=== PATIENT | male | born 1945 | race Caucasian/White ===

== ENCOUNTER → 2019-04-10 14:08 | Outpatient (BNVA) | payer OTHER, SELFPAY | PROVIDERS: Family Provider Internal Medicine; PCP Internal Medicine; Visit Provider Anesthesiology | DX: G89.29 Other chronic pain (principal); M54.5 Low back pain; M79.651 Pain in right thigh; M79.652 Pain in left thigh; M25.511 Pain in right shoulder; Z79.891 Long term (current) use of opiate analgesic | CPT/HCPCS: 99214 ==

== ENCOUNTER 2019-04-26 05:19 | Observation (INO) | payer OTHER, SELFPAY ==
[2019-04-26] VITALS (23 sets, daily range): BP systolic 102–156; BP diastolic 67–103; PULSE 76–126; RESP 12–20; TEMP 36.8–37.8; O2SAT 92–100; BMI 30.4
--- NOTE | 2019-04-26 | CTR_ITS ---
[facility] Final Radiology Report with Addendum Call: [phone] Name: JOSE MCDERMOTT Age: 73Years M Date: 04/26/2019 SSN: -- : [id number] Study: CT ABDOMEN/PELVIS W Requesting Physician: Jose Vann DO Images: [id number] Provided Clinical History: Procedure Accession CTDI Vol (mGy) DLP (mGy-cm) CT ABDOMEN/PELVIS W [id number] 1438.28 Addendum created by Abhay Bentley MD on 04/26/2019 7:30 AM Central Time ([place] & [place]) Findings were discussed over the telephone with Dr. Jose Vann, on 04/26/2019 7:29 AM [employer]ER[employer] ADVISER. Initial Report created on 04/26/2019 7:25 AM Central Time ([place] & [place]) PROCEDURE INFORMATION: Exam: CT Abdomen And Pelvis With Contrast Exam date and time: 04/26/2019 7:02 AM Age: 73 years old Clinical indication: Abdominal pain; Patient HX: Generalized abdominal pain with nausea/vomiting TECHNIQUE: Imaging protocol: Computed tomography of the abdomen and pelvis with intravenous contrast. Total DLP: 1438.28 mGy-cm Radiation optimization: All CT scans at this facility use at least one of these dose optimization techniques: automated exposure control; mA and/or kV adjustment per patient size (includes targeted exams where dose is matched to clinical indication); or iterative reconstruction. Contrast material: Omnipaque 300; Contrast volume: 95 ml; Contrast route: IV; COMPARISON: No relevant prior studies available. FINDINGS: Mediastinum: A large hiatal hernia is present above the level of the diaphragm. Distal thoracic esophageal wall thickening. Fluid distension of the distal thoracic esophagus suggesting gastroesophageal reflux. Liver: Mild intrahepatic biliary ductal dilatation. Gallbladder and bile ducts: Gallbladder luminal distention is present measuring 6.3 cm. No intraluminal calculus identified. Pancreas: Severe pancreatic atrophy. Spleen: Normal. No splenomegaly. Adrenals: Normal. No mass. Kidneys and ureters: Bilateral renal cysts, largest on the left measuring 3.3 cm, largest on the right measuring 2.3 cm. Stomach and bowel: Unremarkable. No obstruction. No mucosal thickening. Appendix: No evidence of appendicitis. Intraperitoneal space: Unremarkable. No free air. No significant fluid collection. Vasculature: Moderate abdominal aortic atherosclerotic calcification without aneurysm. The iliac arteries show mild bilateral atherosclerotic calcifications. Distal right common iliac artery fusiform ectasia measuring 17 mm. Lymph nodes: No enlarged lymph nodes. Bladder: The urinary bladder is partially decompressed and somewhat difficult to assess. Reproductive: The prostate gland is enlarged measuring 5.1 cm transverse dimension. Median lobe hypertrophy protrudes into the urinary bladder lumen. Bones/joints: L5-S1 degenerative disc disease. Bilateral lower lumbar facet primary osteoarthritis. Diffuse osteopenia. Lumbar spine vertebral body marginal osteophytes are noted at multiple levels. Slight L5-S1 anterolisthesis. Partial lumbarization of the sacral S1 segment, normal variant. Mild L1- L2 and L2-L3 retrolisthesis. Soft tissues: Nonspecific soft tissue gas in the proximal left thigh musculature and adjacent fascial planes (series 2, images 88-97). Lateral proximal left thigh and lower gluteal region soft tissue edema. IMPRESSION: 1. Nonspecific soft tissue gas in the proximal left thigh musculature and adjacent fascial planes. Emphysematous cellulitis not excluded, if no recent procedure. Clinical correlation is recommended. 2. Distended gallbladder. Gallbladder sonography may be helpful if clinically indicated. 3. Mild nonspecific intrahepatic biliary ductal dilatation. MRCP may be helpful if indicated. 4. Bilateral renal cysts. 5. Prostatic hypertrophy. 6. Hiatal hernia. 7. Distal thoracic esophagitis. 8. Fluid distension of the distal thoracic esophagus suggesting gastroesophageal reflux. Thank you for allowing us to participate in the care of your patient. Dictated and Authenticated by: Abhay Bentley MD 04/26/2019 7:25 AM Central Time ([place] & [place]) [facility] HOSPITALFlory
--- NOTE | 2019-04-26 05:38 | XR_ITS ---
WS: [id number] KUB portable, 04/26/2019 Clinical Data: Abd Pain/ Constipation Comparison: None. Findings: No abnormal intraabdominal masses or calcifications are seen. There is no dilatated small bowel or ev idence of obstruction. There is a hiatal hernia behind the heart. There is a moderate amount of fecal material throughout th e colon. XR/XR KUB portable [id number] Impression: 1. Hiatal hernia. 2. Moderate amount of fecal material in the colon.
[2019-04-26 06:05] LABS: Basophils % 0.3 %; Hematocrit 37.5 % (42.0-52.0); Hemoglobin 12.9 g/dL (11.7-16.6); Lymphocytes # 1.3 10^3/uL (0.8-4.8); Lymphocytes % 19.7 %; Mean Corpuscular HGB Conc 34.4 g/dL (30.0-36.0); Mean Corpuscular Hemoglobin 33.1 pg (28.0-34.0); Mean Corpuscular Volume 96.2 fL (80-94); Mean Platelet Volume 9.1 fL (7.4-10.4); Monocytes # 0.4 10^3/uL (0.2-0.9); Monocytes % 5.2 %; Neutrophils % 74.2 %; Nucleated Red Blood Cells % 0 %; Platelet Count 330 10^3/cmm (130-400); White Blood Count 6.7 10^3/uL (4.0-10.0)
--- NOTE | 2019-04-26 06:07 | XR_ITS ---
WS: [id number] Portable AP upright chest, 04/26/2019 Clinical Data: abd pain - recent surgery Comparison: None. Findings: No nodules, masses or effusions are seen. The heart is normal. The pulmonary vascularity is not increased. No pneumonia or pneumothorax is seen. The aortic arch and descending aorta are tortuo us. There is a hiatal hernia behind the heart. There is an increased distance between the left eighth and ninth rib in the posterior aspect of the patient may have had thoracic surgery. XR/XR chest 1V portable [id number] Impression: Atherosclerosis and hiatal hernia.
[2019-04-26 06:30] LABS: Alanine Aminotransferase 10 U/L (0-41); Alkaline Phosphatase 40 IU/L (40-130); Anion Gap 18.9 (5-19); Aspartate Amino Transferase 20 U/L (0-40); Blood Urea Nitrogen 19 mg/dL (8-23); Carbon Dioxide 23 mmol/L (22-29); Chloride 95 mmol/L (98-107); Globulin 2.8 g/dL (1.3-4.6); Glucose 160 mg/dL (74-106); Potassium 3.9 mmol/L (3.5-5.1); Sodium 133 mmol/L (136-145); Total Bilirubin 1.4 mg/dL (0.15-1.2); Total Protein 6.8 g/dL (6.6-8.7)
[2019-04-26] MEDS: morphine 4 mg/mL SDV 1 mL 2 MG IVP (06:30)
[2019-04-26] MEDS: ondansetron 2 mg/ML SDV 2 mL 4 MG IVP (06:31)
[2019-04-26] MEDS: sodium chloride 0.9% 1,000 ML 999 ML IV (06:31)
[2019-04-26 06:46] LABS: Lipase 29 U/L (13-60)
[2019-04-26] MEDS: iohexol 300 mg/mL 100 mL Btl IV (06:50)
--- NOTE | 2019-04-26 06:59 | PC.NURSE ---
took report and assumed care from karlene petit. pt is in CT at this time
--- NOTE | 2019-04-26 07:00 | ED_ITS ---
HPI - Abdominal Pain General: Chief Complaint: Abdominal Pain Stated Complaint: VOMITING/CONSTIPATED Time Seen by Provider: 04/26/19 06:07 Review of Systems General: Reports: 10 or more systems reviewed and unremarkable except in HPI and below PFSH ED PFSH: Statuses (acute, chronic, etc) shown below reflect problem list status as previously entered and may not be historically accurate Medical History Chronic left-sided low back pain (Chronic) Chronic right shoulder pain (Chronic) Encounter for long-term use of opiate analgesic (Chronic) Surgical History History of throat surgery (Acute) S/P left knee surgery (Acute) Family History Other Cancer Diabetes Social History Smoking and tobacco status: never smoked Alcohol intake: never Physical Exam Const: COMMON NORMALS: no apparent distress, average body habitus, oriented x3, no limitations, healthy appearing, alert and well nourished HENMT: COMMON NORMALS: normocephalic, head/scalp atraumatic, hearing grossly normal bilaterally, external ears normal, EAC's normal, TM's normal bilaterally, external nose normal, nasal mucous membranes and turbinates normal, moist oral mucous membranes, oropharynx normal, dentition normal and gingiva normal HEAD & SCALP: normocephalic and atraumatic NOSE: external nose normal and nasal mucous membranes and turbinates normal EXTERNAL EAR: Yes external ears normal EXTERNAL AUDITORY CANAL: EAC's normal TYMPANIC MEMBRANE: TM's normal bilaterally Eye: COMMON NORMALS: PERRL, EOMs intact bilaterally, conjunctivae normal, no scleral icterus, no papilledema, normal visual kang by confrontation and fundi normal bilaterally CONJUNCTIVA: Yes conjunctivae normal PUPIL: Yes PERRL DIRECT OPHTHALMOSCOPY: Yes no papilledema and Yes fundi normal bilaterally Neck/C-Spine: COMMON NORMALS: full ROM, no lymphadenopathy, supple, no meningeal signs, no JVD, thyroid normal and no carotid bruits THYROID: thyroid normal Chest: COMMONS NORMALS: inspection of chest normal and palpation of chest no rmal Resp: COMMON NORMALS: normal respiratory effort, no retractions, no use of accessory muscles, clear to auscultation bilaterally and percussion normal AUSCULTATION: clear to auscultation bilaterally PERCUSSION: percussion normal Cardio: COMMON NORMALS: no JVD, regular rate, regular rhythm, S1 normal heart sound, S2 normal heart sound, no gallops, no clicks, no murmurs, no rub and peripheral pulses 2+ throughout RATE: regular rate RHYTHM: regular rhythm HEART SOUNDS: S1 normal and S2 normal PERIPHERAL PULSES: pulses 2+ th roughout GI: COMMON NORMALS: soft to palpation, no hepatosplenomegaly, no masses and no bruits AUSCULTATION: Yes hypoactive bowel sounds and Yes absent bowel sounds PALPATION: Yes soft and Yes no hepatosplenomegaly : COMMON NORMALS: Yes no CVA tenderness BLADDER/KIDNEY EXAM: Yes no CVA tenderness Back/Pelvis: COMMON NORMALS: no CVA tenderness, thoracic and lumbar spine normal to inspection, no thoracic nor lumbar tenderness, thoraco-lumbar ROM normal and straight leg raise negative bilaterally Extremity: COMMON NORMALS: normal to inspection, full ROM, normal capillary refill, no joint enlargement, no clubbing, cyanosis or edema, no calf tenderness and no pedal edema Neuro: COMMON NORMALS: oriented x3 SENSORIUM/ORIENTATION: Yes alert MENINGEAL SIGNS: Yes no meningeal signs Skin: COMMON NORMALS: no rashes or lesions noted, no wounds, skin turgor normal, no jaundice, no petechiae and no mottling GENERAL SKIN EXAM: no rashes or lesions noted and turgor normal Procedures Intubation Mg Given: 20 Mg Given: 200 Course Vital Signs: Vital signs: Vital Signs Temperature 98.3 F 04/26/19 05:34 Pulse Rate 107 H 04/26/19 07:17 Respiratory Rate 15 04/26/19 07:17 Blood Pressure 144/102 04/26/19 07:17 Pulse Oximetry 95 04/26/19 07:17 MDM - Abdominal Pain Lab Data: Labs: Lab Results 04/26/19 04/26/19 04/26/19 Range/Units 05:50 05:50 05:50 WBC 6.7 (4.0-10.0) 10^3/ uL RBC 3.90 L (4.1-5.3) 10^6/u L Hgb 12.9 (11.7-16.6) g/dL Hct 37.5 L (42.0-52.0) % MCV 96.2 H (80-94) fL MCH 33.1 (28.0-34.0) pg MCHC 34.4 (30.0-36.0) g/dL RDW 13.0 (12.1-15.1) % Plt Count 330 (130-400) 10^3/c mm MPV 9.1 (7.4-10.4) fL Neut % (Auto) 74.2 % Lymph % (Auto) 19.7 % Wise % (Auto) 5.2 % Eos % (Auto) 0.0 % Baso % (Auto) 0.3 % Neut # (Auto) 5.0 (1.8-7.7) 10^3/u L Lymph # (Auto) 1.3 (0.8-4.8) 10^3/u L Wise # (Auto) 0.4 (0.2-0.9) 10^3/u L Eos # (Auto) 0.0 (0.0-0.8) 10^3/u L Baso # (Auto) 0.0 (0.0-0.1) 10^3/u L Nucleated RBC % (a uto) 0 % Nucleated RBCs # 0.0 /100WBC Sodium 133 L (136-145) mmol/L Potassium 3.9 (3.5-5.1) mmol/L Chloride 95 L (98-107) mmol/L Carbon Dioxide 23 (22-29) mmol/L Anion Gap 18.9 (5-19) BUN 19 (8-23) mg/dL Creatinine 0.9 (0.7-1.2) mg/dL Glucose 160 H (74-106) mg/dL Lactate (0.5-2.2) mmol/L Calcium 10.0 (8.5-10.5) mg/dL Total Bilirubin 1.4 H (0.15-1.2) mg/dL AST 20 (0-40) U/L ALT 10 (0-41) U/L Alkaline Phosphata se 40 (40-130) IU/L Total Protein 6.8 (6.6-8.7) g/dL Albumin 4.0 (3.5-5.2) g/dL Globulin 2.8 (1.3-4.6) g/dL Lipase 29 (13-60) U/L Urine Color (Yellow) Urine Appearance (CLEAR) Urine pH (5-7) Ur Specific Gravit y (1.005-1.030) Urine Protein (Negative) Urine Glucose (UA) (Normal) Urine Ketones (Negative) Urine Occult Blood (Negative) Urine Nitrate (Negative) Urine Bilirubin (NEGATIVE) Urine Urobilinogen (Negative) mg/dL Ur Leukocyte Linh ase (Negative) Urine RBC (0-2) /hpf Urine WBC (0-5) /hpf Ur Squamous Epith Cells (0-5) Urine Bacteria (NONE) Hyaline Casts Urine Mucus 04/26/19 04/26/19 Range/Units 05:50 07:16 WBC (4.0-10.0) 10^3/ uL RBC (4.1-5.3) 10^6/u L Hgb (11.7-16.6) g/dL Hct (42.0-52.0) % MCV (80-94) fL MCH (28.0-34.0) pg MCHC (30.0-36.0) g/dL RDW (12.1-15.1) % Plt Count (130-400) 10^3/c mm MPV (7.4-10.4) fL Neut % (Auto) % Lymph % (Auto) % Wise % (Auto) % Eos % (Auto) % Baso % (Auto) % Neut # (Auto) (1.8-7.7) 10^3/u L Lymph # (Auto) (0.8-4.8) 10^3/u L Wise # (Auto) (0.2-0.9) 10^3/u L Eos # (Auto) (0.0-0.8) 10^3/u L Baso # (Auto) (0.0-0.1) 10^3/u L Nucleated RBC % (a uto) % Nucleated RBCs # /100WBC Sodium (136-145) mmol/L Potassium (3.5-5.1) mmol/L Chloride (98-107) mmol/L Carbon Dioxide (22-29) mmol/L Anion Gap (5-19) BUN (8-23) mg/dL Creatinine (0.7-1.2) mg/dL Glucose (74-106) mg/dL Lactate 2.0 (0.5-2.2) mmol/L Calcium (8.5-10.5) mg/dL Total Bilirubin (0.15-1.2) mg/dL AST (0-40) U/L ALT (0-41) U/L Alkaline Phosphata se (40-130) IU/L Total Protein (6.6-8.7) g/dL Albumin (3.5-5.2) g/dL Globulin (1.3-4.6) g/dL Lipase (13-60) U/L Urine Color Yellow (Yellow) Urine Appearance Clear (CLEAR) Urine pH 5.0 (5-7) Ur Specific Gravit y 1.000 L (1.005-1.030) Urine Protein 1+ H (Negative) Urine Glucose (UA) Norm (Normal) Urine Ketones 1+ H (Negative) Urine Occult Blood Neg (Negative) Urine Nitrate Negative (Negative) Urine Bilirubin 1+ H (NEGATIVE) Urine Urobilinogen 1 H (Negative) mg/dL Ur Leukocyte Linh ase Negative (Negative) Urine RBC None (0-2) /hpf Urine WBC None (0-5) /hpf Ur Squamous Epith Cells 0-4 H (0-5) Urine Bacteria Trace (NONE) Hyaline Casts Rare Urine Mucus Trace Discharge Plan Discharge Patient Disposition: Admitted As Inpatient Clinical Impression: Cholelithiasis Qualifiers: Cholelithiasis location: gallbladder Cholecystitis presence: without cholecystitis Biliary obstruction: without biliary obstruction Qualified Code(s): K80.20 - Calculus of gallbladder without cholecystitis without obstruction Abdominal pain Qualifiers: Abdominal location: generalized Qualified Code(s): R10.84 - Generalized abdominal pain Constipation Qualifiers: Constipation type: unspecified constipation type Qualified Code(s): K59.00 - Constipation, unspecified Hematemesis Qualifiers: Nausea presence: with nausea Qualified Code(s): K92.0 - Hematemesis Condition: Fair Referrals: Keith Nichols [Primary Care Provider] - Coding Level of Care Code ED Director Of Public Works for [facility] Fwd Exam Problem Focused
--- NOTE | 2019-04-26 07:40 | US_ITS ---
WS: [id number] Gallbladder ultrasound, 04/26/2019 Clinical Data: distended gallbladder Comparison: None. Findings: The gallbladder shows sludge and stones with dilatation. The wall measures 0.24 cm with no perichole cystic fluid. The common bile duct is 0.63 cm and there are no intrahepatic ductal abnormalities. Liver shows no cysts, masses or dilated intrahepatic ducts. The pancreas is obscured by overlying bowel gas but no cyst, pseudocyst, or evidence of pancreatitis is noted. Right kidney measures 4.71 x 4.95 x 10.13 cm and there is a small cyst measuring 2.03 x 2.23 x 2.46 c m. The aorta and inferior vena cava show no vascular abnormalities. US/US gall bladder [id number] Impression: 1. Numerous gallstones and sludge and dilated gallbladder. 2. Normal gallbladder wall thickness.
[2019-04-26 07:50] LABS: Urine Appearance Clear (CLEAR); Urine Color Yellow (Yellow)
[2019-04-26 07:51] LABS: Add Urine Microscopic? YES; Bilirubin Urine 1+ (NEGATIVE); Blood Urine Neg (Negative); Glucose Urine UA Norm (Normal); Ketones Urine 1+ (Negative); Leukocyte Esterase Urine Negative (Negative); Nitrate Urine Negative (Negative); Protein Urine 1+ (Negative); Urobilinogen Urine 1 mg/dL (Negative)
[2019-04-26 08:00] LABS: Add Urine Culture? No; Bacteria Urine TRACE; Hyaline Casts Urine RARE; Mucus Urine TRACE; Squamous Epithelial Cell Urine 0-4 (0-5)
--- NOTE | 2019-04-26 09:29 | PC.NURSE ---
pt being transferred to surgery here
--- NOTE | 2019-04-26 10:28 | SUR.PREOP ---
PT VOMITTED APPROXIMATELY 120 ML OF BLACK, COFFEE GROUND LOOKING EMISIS. WILL NOTIFY DR. CONWAY OF THIS.
--- NOTE | 2019-04-26 10:38 | P.ANES_ITS ---
Pre-Anesthetic Assessment Pre-Anesthetic Assessment: Height/Weight: Height 1.73 m Weight 90.718 kg Temp Pulse Resp BP Pulse Ox 99.2 F 112 H 18 134/91 95 04/26/19 10:18 04/26/19 10:18 04/26/19 10:18 04/26/19 10:18 04/26/19 10:18 Preop Diagnosis: cholelithiasis Proposed Procedure: Operation Date: 04/26/19 13:10 Proposed Procedures p Laparoscopic Cholecystectomy(Not Applicable) - Jonathan Hughes MD Social: Social History: No alcohol and No tobacco Exam: Pre-Anes Outpt Exam: alert, oriented x 3, clear to auscultation bilaterally and regular rate & rhythm Airway: Submandibular: WNL Cervical ROM: WNL MP: 2 Dentition: Partials (lower) and Full (upper) History/ROS: No significant history except as noted Pulmonary: Pulmonary: None reported CV/HEM: CV/HEM: HTN : : None reported Hepatic: Hepatic: None reported GI: GI: GERD (not controlled) Comments: constipation Metabolic: Metabolic: None reported Musc/skel: Musc/skel: OA/DJD Neuropsych: Neuropsych: None reported Anesthetic Plan: ASA status: III Anesthesia: Anesthesia Evaluation and General Other Pertinent Information: h/o esophageal surg PFSH Anesthesia PFSH: Medical History Abdominal pain (Inactive) Fracture of left ankle (Acute) Surgical History History of throat surgery (Acute) S/P left knee surgery (Acute) Family History Other Cancer Diabetes Social History Smoking and tobacco status: never smoked Alcohol intake: never Data Anesthesia CBC & Chem 7: 04/26/19 05:50 04/26/19 05:50 Other Labs: Laboratory Results - last 48 hr 04/26/19 04/26/19 04/26/19 05:50 05:50 05:50 WBC 6.7 RBC 3.90 L Hgb 12.9 Hct 37.5 L MCV 96.2 H MCH 33.1 MCHC 34.4 RDW 13.0 Plt Count 330 MPV 9.1 Neut % (Auto) 74.2 Lymph % (Auto) 19.7 [place] % (Auto) 5.2 Eos % (Auto) 0.0 Baso % (Auto) 0.3 Neut # (Auto) 5.0 Lymph # (Auto) 1.3 [place] # (Auto) 0.4 Eos # (Auto) 0.0 Baso # (Auto) 0.0 Nucleated RBC % (auto) 0 Nucleated RBCs # 0.0 Sodium 133 L Potassium 3.9 Chloride 95 L Carbon Dioxide 23 Anion Gap 18.9 BUN 19 Creatinine 0.9 Glucose 160 H Lactate Calcium 10.0 Total Bilirubin 1.4 H AST 20 ALT 10 Alkaline Phosphatase 40 Total Protein 6.8 Albumin 4.0 Globulin 2.8 Lipase 29 Urine Color Urine Appearance Urine pH Ur Specific [place] Urine Protein Urine Glucose (UA) Urine Ketones Urine Occult Blood Urine Nitrate Urine Bilirubin Urine Urobilinogen Ur Leukocyte Esterase Urine RBC Urine WBC Ur Squamous Epith Cells Urine Bacteria Hyaline Casts Urine Mucus 04/26/19 04/26/19 05:50 07:16 WBC RBC Hgb Hct MCV MCH MCHC RDW Plt Count MPV Neut % (Auto) Lymph % (Auto) [place] % (Auto) Eos % (Auto) Baso % (Auto) Neut # (Auto) Lymph # (Auto) [place] # (Auto) Eos # (Auto) Baso # (Auto) Nucleated RBC % (auto) Nucleated RBCs # Sodium Potassium Chloride Carbon Dioxide Anion Gap BUN Creatinine Glucose Lactate 2.0 Calcium Total Bilirubin AST ALT Alkaline Phosphatase Total Protein Albumin Globulin Lipase Urine Color Yellow Urine Appearance Clear Urine pH 5.0 Ur Specific [place] 1.000 L Urine Protein 1+ H Urine Glucose (UA) Norm Urine Ketones 1+ H Urine Occult Blood Neg Urine Nitrate Negative Urine Bilirubin 1+ H Urine Urobilinogen 1 H Ur Leukocyte Esterase Negative Urine RBC None Urine WBC None Ur Squamous Epith Cells 0-4 H Urine Bacteria Trace Hyaline Casts Rare Urine Mucus Trace Cardiac Studies: No Data to Display
[2019-04-26] MEDS: sodium chloride 0.9% 1,000 ML 30 ML IV (11:11)
--- NOTE | 2019-04-26 12:21 | P.HP_ITS ---
Providers/Chief Complaint Primary Care Provider: Keith Nichols Chief Complaint: VOMITING/CONSTIPATED History of Present Illness Abhijit Curiel is a 73 year old male who presented to the ER with epigastric and right upper quadrant pain associated nausea and vomiting since yesterday. Patient states that he has been having difficulty with eating for the last 4 months. But overnight he started having severe nausea and vomiting and subs equently has started having coffee-ground emesis. He also had couple of episodes of hematemesis. Denies any hematochezia. Patient states that he had multiple colonoscopies. He has had 2 surgeries for dysphagia which I suspect is for esophageal stricture. Patient has been constipated and has not had a bowel movement in 10 days. He had his knee replaced in [place] couple of weeks ago. Review of Systems Const: Denies: fever, chills, change in weight or fatigue Eyes: Denies: change in vision ENMT: Denies: painful swallowing Card: Denies: chest pain Resp: Denies: shortness of breath : Denies: painful urination Skin/Breast: Denies: rash, nipple discharge or breast mass/lump Neuro: Denies: seizure-like activity [place]ipe/Lymph: Denies: easy bruising Medications/Allergies Home Medications Medication Instructions Recorded Confirmed Last Taken Type acetaminophen [Tylenol Extra 1,000 mg PO QID PRN 04/26/19 04/26/19 Unknown History Strength] docusate sodium [Stool Softener] 100 mg PO DAILY PRN 04/26/19 04/26/19 Unknown History Allergies Allergy/AdvReac Type Severity Reaction Status Date / Time No Known Allergies Allergy Verified 04/26/19 10:17 PFSH Acute PFSH: Statuses (acute, chronic, etc) shown below reflect problem list status as previously entered and may not be historically accurate Medical History Esophageal stricture (Acute) Fracture of left ankle (Acute) GERD (gastroesophageal reflux disease) (Acute) Surgical History H/O esophagogastroduodenoscopy (Acute) S/P laparotomy (Acute) S/P left knee surgery (Acute) S/P thoracotomy (Acute) for ? esophageal stricture Status post colonoscopy (Acute) Status post left knee replacement (Acute) Family History Other Cancer Diabetes Social History Smoking and tobacco status: never smoked Alcohol intake: never Vitals/I&O/Wt Last Vital Signs Temp 99.2 F 04/26/19 10:18 Pulse 112 H 04/26/19 10:18 Resp 18 04/26/19 10:18 BP 134/91 04/26/19 10:18 Pulse Ox 95 04/26/19 10:18 04/25/19 04/26/19 04/26/19 22:59 06:59 14:59 Output Total 120 / 120 Balance -120 / -120 Weight last 48 hrs Weight 200 lb Physical Exam Narrative: EXAM NARRATIVE: HEENT: Normocephalic Eye: Sclera /conjunctiva normal Respiratory and chest: Bilateral clear breath sounds on auscultation Cardiovascular: Normal S1 and S2 heart sounds, left thoracotomy scar Abdomen: Soft to palpation, well-healed midline laparotomy scar, tender in the right upper quadrant, Hanson sign positive Neurological: Oriented to place person and time Skin: Intact, no lesions appreciated on gross exam Data : 04/26/19 05:50 04/26/19 05:50 A&P Assessment and plan (1) Cholelithiasis: Patient has been dealing with right upper quadrant pain for the last 3 to 4 months which is worse after eating. Ultrasound showed gallstones. His LFTs are normal except for slightly elevated bilirubin of 1.4. Plan for laparoscopic possible open cholecystectomy Procedure, risks, benefits and alternatives have been discussed with the patient who wishes to proceed with surgery. Status: Acute Qualifiers: Biliary obstruction: without biliary obstruction Cholecystitis presence: without cholecystitis Cholelithiasis location: gallbladder Qualified Code(s): K80.20 - Calculus of gallbladder without cholecystitis without obstruction Code(s): K80.20 - Calculus of gallbladder without cholecystitis without obstruction (2) Hematemesis: Plan for EGD under MAC prior to cholecystectomy Status: Acute Qualifiers: Nausea presence: with nausea Qualified Code(s): K92.0 - Hematemesis Code(s): K92.0 - Hematemesis Attestations Medical Necessity Statement*: Cholelithiasis with hematemesis Coding Level of Care Code Acute Senior Audit Manager for [facility] Fwd Diagnoses Cholelithiasis K80.20 Biliary obstruction: without biliary obstruction Cholecystitis presence: without cholecystitis Cholelithiasis location: gallbladder Hematemesis K92.0 Nausea presence: with nausea
[2019-04-26] MEDS: piperacillin-tazobactam 3.375 GM in sodium chloride 0.9% (plus) 50 ML IV (12:41)
[2019-04-26] MEDS: dextrose 5%-ns + KCl 20 20 MEQ/1,000 ML BAG 100 MEQ IV (15:51)
[2019-04-26] MEDS: famotidine 20 mg/2 mL INJ IVP (15:52)
[2019-04-26] MEDS: morphine 4 mg/mL SDV 1 mL 3 MG IVP ×2 (15:54→22:00)
[2019-04-26] MEDS: lactulose oral liq 20 gm/30 mL UDC 10 GM PO (15:58)
--- NOTE | 2019-04-26 18:35 | P.OP_ITS ---
Operative Report Date of procedure: April 26, 2019 Pre-op Diagnosis: cholelithiasis, coffee-ground emesis, history of esophageal surgery for str Post-op Diagnosis: Dilated distal esophagus Esophagitis Cholelithiasis Procedure Done: Esophagogastroduodenoscopy without biopsy Laparoscopic cholecystectomy laparoscopic lysis of adhesions for 10 minutes Specimens removed/disposition: Gallbladder Surgeon: Jonathan Hughes Anesthesia: General Estimated blood loss (mL): 20 Condition: stable Disposition: PACU Procedure: The patient was taken to the operating room and was intubated under general anesthesia. A gastroscope was introduced and advanced up to the second portion of the duodenum and slowly withdrawn. There was some coffee-ground fluid noted in the stomach. The first and second portion of the duodenum was normal. The fundus, antrum, pylorus and body of the stomach was normal. There was some edema at the GE junction with esophagitis which is a likely source of the melena. The distal esophagus was dilated. After the antibiotic had been administered, the abdomen was prepped and draped in a sterile manner. Using a #15 blade, a 1 centimeter infraumbilical curvilinear incision was made and using an open Katie technique the peritoneal cavity was entered. A 10 millimeter port was placed and 15 millimeters of pneumoperitoneum was created. A 10 millimeter, 30 degrees scope was then introduced. A 5 mm port was placed to the left of the midline superior to the umbilicus under direct visualization and lysis of adhesions was performed for 10 minutes. Transverse colon and omentum was adherent to the abdominal wall from prior laparotomy. Three 5 millimeter ports were placed in the epigastric, midclavicular and the anterior axillary line two fingerbreadths below the costal margin on the right side under the direct visualization. Ratcheted forceps were introduced into the lateral most port and was used to retract the fundus of the gallbladder cephalad and using forceps the infundibulum of the gallbladder was retracted laterally. Using L- hook cautery the peritoneum overlying the Calot's triangle was opened medially and laterally until the cystic duct and the cystic artery were skeletonized. Dissection was carried along the body of the gallbladder and after ensuring critical view of safety, 4 clips applied on the cystic duct and 3 clips applied on the cystic artery and cut leaving, 3 clips on the remaining portion of the duct and 2 clips on the remaining portion of the artery. The rest of the gallbladder was dissected off the liver using L-hook cautery. There was no bleeding or bile leaking noted from the gallbladder fossa and the clips appeared to be in place. An EndoCatch bag was introduced to remove the gallbladder. All the ports were removed under direct visualization and there was no bleeding noted from the port sites. The fascia of the umbilicus was closed using [id number] 0 Vicryl sutures and the subcutaneous tissue was approximated us ing 3-0 Vicryl sutures. The skin at all four ports were closed using 4-0 Monocryl and Dermabond. A total of 10 millimeters of 0.5% Marcaine was infiltrated around the port sites. The patient was stable throughout the procedure.
[2019-04-26] MEDS: pantoprazole 40 mg SDV IVP (22:00)
[2019-04-27] VITALS (10 sets, daily range): BP systolic 119–188; BP diastolic 78–92; PULSE 81–104; RESP 14–19; TEMP 36.6–37.2; O2SAT 93–99
[2019-04-27] MEDS: dextrose 5%-ns + KCl 20 20 MEQ/1,000 ML BAG 100 MEQ IV ×2 (00:14→14:12)
[2019-04-27] MEDS: lactulose oral liq 20 gm/30 mL UDC 10 GM PO ×2 (04:07→14:17)
[2019-04-27] MEDS: morphine 4 mg/mL SDV 1 mL 3 MG IVP (05:58)
[2019-04-27] MEDS: magnesium citrate Btl 296 mL PO (05:58)
[2019-04-27 06:03] LABS: Basophils % 0.1 %; Hemoglobin 9.9 g/dL (11.7-16.6); Lymphocytes # 1.3 10^3/uL (0.8-4.8); Lymphocytes % 16.3 %; Mean Corpuscular Hemoglobin 33.4 pg (28.0-34.0); Mean Corpuscular Volume 101.4 fL (80-94); Mean Platelet Volume 9.3 fL (7.4-10.4); Monocytes # 0.7 10^3/uL (0.2-0.9); Monocytes % 8.8 %; Neutrophils # 5.8 10^3/uL (1.8-7.7); Neutrophils % 74.3 %; Nucleated Red Blood Cells % 0 %; Platelet Count 241 10^3/cmm (130-400); Red Blood Count 2.96 10^6/uL (4.1-5.3); Red Cell Distribution Width 13.7 % (12.1-15.1); White Blood Count 7.8 10^3/uL (4.0-10.0)
[2019-04-27 06:20] LABS: Blood Urea Nitrogen 25 mg/dL (8-23); Calcium 9.3 mg/dL (8.5-10.5); Carbon Dioxide 23 mmol/L (22-29); Chloride 106 mmol/L (98-107); Creatinine Clr Calc Pharmacy 87.2616; Glucose 157 mg/dL (74-106); Osmolality Calculated 282 mOsm/kg (285-295); Sodium 136 mmol/L (136-145)
[2019-04-27] MEDS: pantoprazole 40 mg SDV IVP ×2 (09:18→19:45)
[2019-04-27] MEDS: morphine ER (12 HR) 15 mg Tablet PO ×2 (09:19→17:38)
[2019-04-27] MEDS: finasteride 5 mg Tablet PO (09:19)
--- NOTE | 2019-04-27 10:38 | PM.PN ---
Subjective Subjective: Interval history: Status post laparoscopic cholecystectomy and EGD. No further episode of hematemesis or melena. Patient feels better, has some postop abdominal pain but no nausea or vomiting. Tolerating clear liquid diet. Medications: Reviewed: Yes Vitals/I&O/Wt Last Vital Signs Temp 98.6 F 04/27/19 08:00 Pulse 104 H 04/27/19 08:00 Resp 18 04/27/19 08:00 BP 133/92 04/27/19 08:00 Pulse Ox 96 04/27/19 08:00 04/26/19 04/27/19 04/27/19 22:59 06:59 14:59 Intake Total 220 / 2608.333 838.333 / 2608.333 Output Total 200 / 540 200 / 540 Balance 2067.333 638.333 / 8.333 Weight last 48 hrs Weight 200 lb Physical Exam Narrative: EXAM NARRATIVE: Abdomen: Soft, tender, incision clean dry and intact Data : 04/27/19 05:35 04/27/19 05:35 A&P Assessment and plan (1) Status post laparoscopic cholecystectomy: Continue clear liquid diet Continue Protonix 40 mg twice daily Status: Acute Code(s): Z90.49 - Acquired absence of other specified parts of digestive tract (2) Constipation: Patient had a large bowel movement, will repeat the enema later today Status: Acute Qualifiers: Constipation type: unspecified constipation type Qualified Code(s): K59.00 - Constipation, unspecified Code(s): K59.00 - Constipation, unspecified (3) Hematemesis: Continue Protonix 40 mg twice daily Check hemoglobin at 3 PM today Status: Acute Qualifiers: Nausea presence: with nausea Qualified Code(s): K92.0 - Hematemesis Code(s): K92.0 - Hematemesis Attestations Medical Necessity Statement*: Hematemesis and constipation status post lap sasha requiring overnight for observation Coding Level of Care Code Acute Supervisor Wool [employer]aring for g Fwd Diagnoses Status post laparoscopic cholecystectomy Z90.49 Constipation K59.00 Constipation type: unspecified constipation type Hematemesis K92.0 Nausea presence: with nausea
--- NOTE | 2019-04-27 13:02 | PC.CHAP ---
Pastoral Care Encounter/Spiritual Assessment Type of Contact [x] Declined signal maintainer visit [] Patient/Family/Request visit [] Outpatient visit [] Follow-up visit [] Physician referral [] Code/Alert [] Routine visit [] Staff referral [] Actively dying [] Patient sleeping [] Family support [] [] Out of room [] Palliative care [] [] Receiving care in room [] Pre-surgical visit [] Trauma [] Long length of stay [] ICU visit [] Other: Relational/Emotional Strength [] Patient feels connected with others/family/visitors/staff [] Distress [] Loneliness/isolation [] Abandonment Spirituality of Patient [] Person of Katelynn [] Attends Mandaeism of their Katelynn [] Believes in Prayer [] Reads Bible or Gnosticism materials [] There are Spiritual issues to be addressed Lead Massage Therapist Interventions [] Prayer [] Active listening [] Non-anxious presence [] Spiritual/emotional support [] Crisis/trauma care [] Spiritual counseling [] Bereavement support [] Provided bereavement packet [] Provided Bible/devotional materials [] Provided toy/stuffed animal, coloring book to patient or family member [] Provided Communion [] Anointing/[place] [] Salvation [] Completed spiritual assessment [] Other: Impact on Illness or Injury [] Angry [] Fearful [] Anxious [] Often cries [] Exhaustion [] Unable to work [] Unable to attend episcopalian [] Unable to walk/stand [] Unable to read [] Unable to drive [] Unable to eat/drink [] Unable to sleep [] Unable to be with family [] Patient intubated [] Other: Summary Time spent with patient
--- NOTE | 2019-04-27 14:52 | ANE.PACU ---
 Inpatient post-anesthesia follow up: Airway intact: Yes Vital signs: Temperature 97.9 F Pulse Rate [Left R adial] 107 Pulse Rate 87 Respiratory Rate 14 Blood Pressure [Le ft Arm] 144/102 Blood Pressure 142/91 Pulse Oximetry 94 Oxygen Delivery Me thod Nasal Cannula Oxygen Flow Rate 2 Fraction of Inspir ed Oxygen Hydration adequate: Yes Nausea and vomiting: Yes Pain level: 1 Mental status: Baseline
[2019-04-28] VITALS (8 sets, daily range): BP systolic 124–180; BP diastolic 74–83; PULSE 65–84; RESP 16–18; TEMP 36–37.2; O2SAT 93–98
--- NOTE | 2019-04-28 01:06 | PC.NURSE ---
Patient's hemoglobin was 9 at this time. Spoke with the charge nurse Toshia HORTA who stated it would be ok to wait until the morning to let DR. Avila know.
[2019-04-28] MEDS: dextrose 5%-ns + KCl 20 20 MEQ/1,000 ML BAG 100 MEQ IV ×3 (01:13→22:40)
[2019-04-28 06:19] LABS: Eosinophils % 0.2 %; Hematocrit 24.6 % (42.0-52.0); Hemoglobin 8.2 g/dL (11.7-16.6); Lymphocytes # 1.4 10^3/uL (0.8-4.8); Lymphocytes % 21.1 %; Mean Corpuscular HGB Conc 33.3 g/dL (30.0-36.0); Mean Corpuscular Hemoglobin 33.7 pg (28.0-34.0); Mean Corpuscular Volume 101.2 fL (80-94); Mean Platelet Volume 9.5 fL (7.4-10.4); Monocytes # 0.7 10^3/uL (0.2-0.9); Monocytes % 10.3 %; Neutrophils # 4.4 10^3/uL (1.8-7.7); Neutrophils % 67.6 %; Nucleated Red Blood Cells % 0 %; Platelet Count 195 10^3/cmm (130-400); Red Blood Count 2.43 10^6/uL (4.1-5.3); Red Cell Distribution Width 13.8 % (12.1-15.1); White Blood Count 6.5 10^3/uL (4.0-10.0)
[2019-04-28 06:55] LABS: Anion Gap 8.9 (5-19); Blood Urea Nitrogen 24 mg/dL (8-23); Calcium 8.7 mg/dL (8.5-10.5); Carbon Dioxide 25 mmol/L (22-29); Chloride 105 mmol/L (98-107); Creatinine Clr Calc Pharmacy 87.2616; Glucose 121 mg/dL (74-106); Osmolality Calculated 278 mOsm/kg (285-295); Potassium 3.9 mmol/L (3.5-5.1); Sodium 135 mmol/L (136-145)
[2019-04-28] MEDS: pantoprazole 40 mg SDV IVP ×2 (08:06→20:53)
[2019-04-28] MEDS: morphine ER (12 HR) 15 mg Tablet PO ×2 (08:56→18:28)
[2019-04-28] MEDS: finasteride 5 mg Tablet PO (08:56)
--- NOTE | 2019-04-28 11:16 | P.PN_ITS ---
Subjective Subjective: Interval history: Patient has minimal abdominal pain, no nausea or vomiting, does not have an appetite there is tolerating a full liquid diet. He had 3 bowel movements yesterday. No further episodes of hematemesis though his hemoglobin has been trending down, is 8.2 today. Medications: Reviewed: Yes Vitals/I&O/Wt Last Vital Signs Temp 97.9 F 04/28/19 07:36 Pulse 66 04/28/19 07:36 Resp 16 04/28/19 07:36 BP 124/74 04/28/19 07:36 Pulse Ox 95 04/28/19 07:36 04/27/19 04/28/19 04/28/19 22:59 06:59 14:59 Intake Total 360 / 2700 1000 / 2700 120 / 120 Output Total 500 / 800 300 / 800 140 / 140 Balance -140 / 1900 700 / 1900 -20 Physical Exam Narrative: EXAM NARRATIVE: Abdomen: Soft, nontender, nondistended incisions healing well Data : 04/28/19 05:36 04/28/19 05:36 A&P Assessment and plan (1) Anemia: Will recheck hemoglobin this evening, if it remains stable hopefully can go home Patient did not receive Lovenox due to his episode of hematemesis and since his hemoglobin has been trending down Status: Acute Code(s): D64.9 - Anemia, unspecified (2) Status post laparoscopic cholecystectomy: Continue full liquid diet since his appetite is not back to normal Ambulate ad brian. SCD for DVT prophylaxis Status: Acute Code(s): Z90.49 - Acquired absence of other specified parts of digestive tract (3) Constipation: Resolved continue lactulose and senna S for aggressive bowel regimen Status: Acute Qualifiers: Constipation type: unspecified constipation type Qualified Code(s): K59.00 - Constipation, unspecified Code(s): K59.00 - Constipation, unspecified Attestations Medical Necessity Statement*: Patient's hemoglobin has been trending down with no evidence of active GI bleed and therefore he needs continued inpatient hospital stay to ensure that his hemoglobin does not drop any further that would require transfusion Coding Level of Care Code Acute Advertising Project Manager for g Fwd Diagnoses Anemia D64.9 Status post laparoscopic cholecystectomy Z90.49 Constipation K59.00 Constipation type: unspecified constipation type
[2019-04-28 18:09] LABS: Hematocrit 26.8 % (42.0-52.0); Hemoglobin 8.9 g/dL (11.7-16.6)
[2019-04-28] MEDS: sennosides-docusate Tablet 1 TAB PO (18:28)
[2019-04-29] VITALS (8 sets, daily range): BP systolic 130–152; BP diastolic 72–92; PULSE 20–71; RESP 16–71; TEMP 36.7–37; O2SAT 95–96
[2019-04-29 05:36] LABS: Basophils % 0.2 %; Eosinophils # 0.2 10^3/uL (0.0-0.8); Eosinophils % 4.3 %; Hematocrit 23.9 % (42.0-52.0); Hemoglobin 7.9 g/dL (11.7-16.6); Lymphocytes # 1.6 10^3/uL (0.8-4.8); Mean Corpuscular HGB Conc 33.1 g/dL (30.0-36.0); Mean Corpuscular Hemoglobin 32.4 pg (28.0-34.0); Mean Platelet Volume 9.1 fL (7.4-10.4); Monocytes # 0.4 10^3/uL (0.2-0.9); Monocytes % 7.3 %; Neutrophils # 2.9 10^3/uL (1.8-7.7); Neutrophils % 56.6 %; Nucleated Red Blood Cells % 0 %; Platelet Count 164 10^3/cmm (130-400); Red Blood Count 2.44 10^6/uL (4.1-5.3); Red Cell Distribution Width 13.2 % (12.1-15.1); White Blood Count 5.1 10^3/uL (4.0-10.0)
[2019-04-29 05:52] LABS: Anion Gap 10.7 (5-19); Blood Urea Nitrogen 11 mg/dL (8-23); Calcium 8.6 mg/dL (8.5-10.5); Carbon Dioxide 24 mmol/L (22-29); Chloride 102 mmol/L (98-107); Creatinine Clr Calc Pharmacy 87.2616; Glucose 115 mg/dL (74-106); Osmolality Calculated 273 mOsm/kg (285-295); Potassium 3.7 mmol/L (3.5-5.1); Sodium 133 mmol/L (136-145)
[2019-04-29] MEDS: morphine ER (12 HR) 15 mg Tablet PO (09:56)
[2019-04-29] MEDS: pantoprazole 40 mg SDV IVP (09:56)
[2019-04-29] MEDS: finasteride 5 mg Tablet PO (09:56)
[2019-04-29] MEDS: sennosides-docusate Tablet 1 TAB PO (09:56)
--- NOTE | 2019-04-29 10:31 | PC.SOCIAL ---
Pg 2 IMM Explained to pt Pg 2 IMM. Pt verbally understands & signed. Provided a copy to pt & left on pt's bedside table. Signed, dated, & timed then placed in chart.
--- NOTE | 2019-04-29 11:24 | P.PN_ITS ---
Subjective Subjective: Interval history: Hemoglobin is remained stable, denies any nausea or vomiting, no further episodes of hematemesis or melena and is tolerating a liquid diet. Denies any significant abdominal pain Medications: Reviewed: Yes Vitals/I&O/Wt Last Vital Signs Temp 98.6 F 04/29/19 07:19 Pulse 55 L 04/29/19 07:19 Resp 18 04/29/19 07:19 BP 133/83 04/29/19 07:19 Pulse Ox 95 04/29/19 07:19 04/28/19 04/29/19 04/29/19 22:59 06:59 14:59 Intake Total 1360.000 / 2720.000 240 / 2720.000 240 / 240 Output Total 900 / 1965 550 / 1965 300 / 300 Balance 460.000 / 755.000 -310 / 755.000 -60 / -60 Physical Exam Narrative: EXAM NARRATIVE: Abdomen: Soft, nondistended, minimally tender, incision clean dry and intact Data : 04/29/19 05:08 04/29/19 05:08 A&P Assessment and plan (1) Status post laparoscopic cholecystectomy: Doing well DC home today Status: Acute Code(s): Z90.49 - Acquired absence of other specified parts of digestive tract (2) Constipation: Appears to have resolved Status: Resolved Qualifiers: Constipation type: unspecified constipation type Qualified Code(s): K59.00 - Constipation, unspecified Code(s): K59.00 - Constipation, unspecified Attestations Medical Necessity Statement*: Discharge home today Coding Level of Care Code Acute Healthcare Corporate Account Director for [facility] Fwd Diagnoses Status post laparoscopic cholecystectomy Z90.49 Constipation K59.00 Constipation type: unspecified constipation type
--- NOTE | 2019-04-29 11:24 | P.DS_ITS ---
Discharge Providers Date of Admission: 04/26/19 14:32 Date of Discharge: Date of Discharge: April 29, 2019 Attending Provider at Admission: Jonathan Hughes MD Attending Provider at Discharge: Jonathan Hughes MD Primary Care Provider: Keith Nichols Diagnoses at Discharge Discharge Diagnosis (1) Status post laparoscopic cholecystectomy: Status: Acute (2) Constipation: Status: Resolved Qualifiers: Constipation type: unspecified constipation type Qualified Code(s): K59.00 - Constipation, unspecified Reason for Visit Reason for Visit: Reason For Visit: VOMITING/CONSTIPATED Hospital Course Hospital Course: The patient underwent a visual esophagitis and laparoscopic cholecystectomy. He underwent an EGD due to hematemesis. His hemoglobin had been trending down over the 2 days after surgery. By postop day 2 his hemoglobin had stabilized. Patient was asymptomatic, hemodynamically stable. At time of discharge he was tolerating liquid diet, ambulating and his incisions are clean dry and intact Physical Exam Narrative: EXAM NARRATIVE: abdomen: Soft, nontender, nondistended incisions healing well Discharge Data Data Completed and Pending: Completed Studies During Hospitalization Category Date Time Status CT abdomen pelvis w con* [id number] Urge nt Cat Scan 04/26/19 06:07 Completed XR KUB portable 7 [id number] Urgent Exams 04/26/19 05:38 Completed XR chest 1V chago ble [id number] Urgent Exams 04/26/19 06:07 Completed US gall bladder 7 6705 Urgent Ultrasound 04/26/19 07:40 Completed Pending at discharge Category Date Time Status ES surgery / GI i mages Routine Exams 04/26/19 12:06 Ordered Pathology: Surgic al [PTH] Routine Pth 04/26/19 14:22 Received Labs from last 24 hours 04/29/19 04/29/19 04/28/19 05:08 05:08 17:57 WBC 5.1 RBC 2.44 L Hgb 7.9 L 8.9 L Hct 23.9 L 26.8 L MCV 98.0 H MCH 32.4 MCHC 33.1 RDW 13.2 Plt Count 164 MPV 9.1 Neut % (Auto) 56.6 Lymph % (Auto) 31.0 [place] % (Auto) 7.3 Eos % (Auto) 4.3 Baso % (Auto) 0.2 Neut # (Auto) 2.9 Lymph # (Auto) 1.6 [place] # (Auto) 0.4 Eos # (Auto) 0.2 Baso # (Auto) 0.0 Nucleated RBC % (a uto) 0 Nucleated RBCs # 0.0 Sodium 133 L Potassium 3.7 Chloride 102 Carbon Dioxide 24 Anion Gap 10.7 BUN 11 Creatinine 0.6 L Glucose 115 H Calculated Osmolal ity 273 L Calcium 8.6 Vitals: Last Vital Signs Temp 98.6 F 04/29/19 07:19 Pulse 55 L 04/29/19 07:19 Resp 18 04/29/19 07:19 BP 133/83 04/29/19 07:19 Pulse Ox 95 04/29/19 07:19 Discharge Plan Discharge Patient Disposition: Home, Self-Care Condition: Fair Prescriptions: New Carafate 1 gram tablet 1 gm PO Q6H 28 Days Qty: 112 RF: 0 Colace 100 mg capsule 100 mg PO BID Qty: 30 RF: 0 lactulose 10 gram/15 mL solution 15 ml PO BID Qty: 237 RF: 2 Continued hydromorphone [Dilaudid] 4 mg tablet 4 mg PO QID PRN (Reason: pain) 30 Days Qty: 120 RF: 0 morphine 15 mg tablet extended release 15 mg PO Q12H PRN (Reason: pain) 30 Days Qty: 60 RF: 0 lansoprazole 15 mg capsule,delayed release(DR/EC) 15 mg PO BID RF: 0 diphenhydramine HCl [Benadryl] 25 mg capsule 25 mg PO TID PRN (Reason: Allergy Symptoms) RF: 0 finasteride 5 mg tablet 5 mg PO ONCE RF: 0 Tylenol Extra Strength 500 mg Tablet 1,000 mg PO QID PRN (Reason: Pain) RF: 0 Discontinued docusate sodium [Stool Softener] 100 mg Capsule 100 mg PO DAILY PRN (Reason: Constipation) RF: 0 Discharge Orders: Discharge Order (Routine); Ordered 04/29/19 Ordered By: Jonathan Hughes Referrals: Keith Nichols [Primary Care Provider] - (Call the clinic on Tuesday and make an appointment to be made the next avaliable date.) Jonathan Hughes MD [Physician] - 2 weeks (Call his office and make an appointment to be seen in 2 weeks.) Patient Instructions: Constipation - Adult, Sucralfate (By mouth), Laxative, Stool Softeners (By mouth), Lactulose (By mouth), Cholelithiasis (DC), Laparoscopic Cholecystectomy (DC) Activity Restrictions/Additional Instructions: 1. Up and walking as tolerated. 2. Ok to shower in 48 hours after surgery. 3. Remove Dermabond dressing in 7-10 days. 4. Do not lift more than 10 pounds. 5. Do not operate heavy machinery or drive while using pain medications. 6. Advised to return to ER or contact my office if there are any signs of infection like, increasing pain, fevers, chills, redness or drainage of pus. Discharge Date/Time: 04/29/19 12:21 Discharge Attestations Time Spent in Discharge Care*: less than 30 min Quality Metrics Clinical Quality Measures During this hospital stay, did patient experience: None Coding Level of Care Code Acute Rn Palliative Care for Chg Fwd Diagnoses Status post laparoscopic cholecystectomy Z90.49 Constipation K59.00 Constipation type: unspecified constipation type
== END 2019-04-29 12:21 | disposition home or self-care (01) ==
LOC: ER 09:02 → OR 09:03 → MEDSURG 14:33
PROVIDERS: Emergency Medicine; Admitting Provider Surgery; Emergency Provider Family Medicine; Family Provider Internal Medicine; PCP Internal Medicine; Visit Provider Surgery
PROC: 0FT44ZZ Resection of Gallbladder, Percutaneous Endoscopic Approach (ICD-10-PCS; CPT 47562; principal; 2019-04-26 13:10)
PROC: 0DJ08ZZ Inspection of Upper Intestinal Tract, Via Natural or Artificial Opening Endoscopic (ICD-10-PCS; CPT 43235; 2019-04-26 13:10)
DX: K80.10 Calculus of gallbladder with chronic cholecystitis without obstruction (principal); K21.9 Gastro-esophageal reflux disease without esophagitis; Z83.3 Family history of diabetes mellitus; K59.00 Constipation, unspecified; K92.0 Hematemesis; D64.9 Anemia, unspecified; K22.8 Other specified diseases of esophagus; I10 Essential (primary) hypertension; M19.90 Unspecified osteoarthritis, unspecified site
CPT/HCPCS: 43235; 47562; 12345; 36415; 45915; 71045; 74018; 74177; 76705; 80048; 80053; 81001; 83605; 83690; 85014; 85018; 85025; 88304; 96360; 96361; 96365; 96374; 96375; 97110; 97161; 97530; 99282; 99285; C9113; G0378; J0330; J2001; J2270; J2370; J2405; J2543; J2704; J2710; J2765; J3010; J3490; J7030; Q9967

== ENCOUNTER 2019-05-03 06:30 | Observation (INO) | payer OTHER, SELFPAY ==
[2019-05-03] VITALS (11 sets, daily range): BP systolic 97–115; BP diastolic 63–79; PULSE 72–106; RESP 14–18; TEMP 36.4–37.1; O2SAT 93–100; BMI 30.4
--- NOTE | 2019-05-03 06:41 | ED_ITS ---
HPI - General Adult General: Chief complaint: GI Bleed Stated complaint: GI BLEED Time Seen by Provider: 05/03/19 06:39 History of Present Illness: HPI narrative: 73-year-old male presents the emergency room with complaints of hematemesis and coffee-ground emesis overnight. He has not had any chest pain or shortness of breath. He recently had a cholecystectomy. Associated symptoms: Reports nausea and vomiting; Deny chest pain, dyspnea, malaise or rash Review of Systems Const: Denies: fever, chills, body aches, change in appetite, fatigue or malaise ENMT: Denies: throat pain, ear pain, nasal discharge or nasal congestion Card: Denies: chest pain, edema, shortness of breath on exertion or shortness of breath when lying down Resp: Denies: shortness of breath, productive cough or non-productive cough GI: Reports: abdominal pain, nausea, vomiting, vomiting blood and coffee grounds in vomit; Denies: diarrhea, constipation, bloating, blood in stool or black tarry stool : Denies: flank pain, painful urination, urinary frequency or urinary urgency Skin/Breast: Denies: rash or itching PFSH ED PFSH: Statuses (acute, chronic, etc) shown below reflect problem list status as previously entered and may not be historically accurate Medical History Esophageal dilatation (Acute) Esophageal stricture (Acute) Fracture of left ankle (Acute) GERD (gastroesophageal reflux disease) (Acute) Surgical History H/O esophagogastroduodenoscopy (Acute) 04/26/2019: Esophagitis S/P laparotomy (Acute) S/P thoracotomy (Acute) for ? esophageal stricture Status post colonoscopy (Acute) Status post laparoscopic cholecystectomy (Acute) Status post left knee replacement (Acute) Family History Father Cancer Unknown origin Mother Cancer Reported renal cancer Other Diabetes Social History Smoking and tobacco status: former smoker Alcohol intake: never Physical Exam Const: COMMON NORMALS: no apparent distress GENERAL APPEARANCE: cooperative and comfortable ORIENTATION/CONSCIOUSNESS: Yes awake, Yes oriented to person, Yes oriented to place and Yes oriented to time HENMT: COMMON NORMALS: normocephalic, head/scalp atraumatic, hearing grossly normal bilaterally, external ears normal, EAC's normal, TM's normal bilaterally, nasal mucous membranes and turbinates normal, moist oral mucous membranes and oropharynx normal HEAD & SCALP: normocephalic and atraumatic NOSE: nasal mucous membranes and turbinates normal EXTERNAL EAR: Yes external ears normal EXTERNAL AUDITORY CANAL: EAC's normal TYMPANIC MEMBRANE: TM's normal bilaterally Eye: COMMON NORMALS: PERRL, EOMs intact bilaterally, conjunctivae normal and no scleral icterus CONJUNCTIVA: Yes conjunctivae normal PUPIL: Yes PERRL Neck/C-Spine: COMMON NORMALS: full ROM, no lymphadenopathy, supple and no JVD Lymph: LYMPHATIC: no lymphadenopathy noted and no lymphedema noted Resp: COMMON NORMALS: normal respiratory effort, no retractions, no use of accessory muscles and clear to auscultation bilaterally AUSCULTATION: clear to auscultation bilaterally Cardio: COMMON NORMALS: no JVD, regular rate, regular rhythm and no murmurs RATE: regular rate RHYTHM: regular rhythm GI: COMMON NORMALS: soft to palpation and no hepatosplenomegaly AUSCULTATION: Yes normoactive bowel sounds PALPATION: Yes soft, No tender, No guarding and Yes no hepatosplenomegaly Extremity: COMMON NORMALS: normal to inspection, normal capillary refill, no clubbing, cyanosis or edema, no calf tenderness and no pedal edema Neuro: SENSORIUM/ORIENTATION: Yes oriented to person, Yes oriented to place and Yes oriented to time Skin: COMMON NORMALS: no rashes or lesions noted GENERAL SKIN EXAM: no rashes or lesions noted Course ED course: He has mild anemia. Organ to go ahead and put him on observation he may need further evaluation including potential endoscopy discussed Dr. Sterling taylor she will see him. Vital Signs: Vital signs: Vital Signs Temperature 98.8 F 05/04/19 11:59 Pulse Rate 78 05/04/19 11:59 Respiratory Rate 18 05/04/19 11:59 Blood Pressure 123/82 05/04/19 11:59 Pulse Oximetry 97 05/04/19 11:59 MDM - General Adult Lab Data: Labs: Lab Results 05/03/19 05/03/19 05/03/19 Range/Units 07:10 07:10 07:10 WBC 5.3 (4.0-10.0) 10^3/ uL RBC 3.47 L (4.1-5.3) 10^6/u L Hgb 11.4 L (11.7-16.6) g/dL Hct 34.1 L (42.0-52.0) % MCV 98.3 H (80-94) fL MCH 32.9 (28.0-34.0) pg MCHC 33.4 (30.0-36.0) g/dL RDW 14.6 (12.1-15.1) % Plt Count 283 (130-400) 10^3/c mm MPV 9.0 (7.4-10.4) fL Neut % (Auto) 62.7 % Lymph % (Auto) 23.2 % [place] % (Auto) 7.7 % Eos % (Auto) 5.8 % Baso % (Auto) 0.4 % Neut # (Auto) 3.3 (1.8-7.7) 10^3/u L Lymph # (Auto) 1.2 (0.8-4.8) 10^3/u L [place] # (Auto) 0.4 (0.2-0.9) 10^3/u L Eos # (Auto) 0.3 (0.0-0.8) 10^3/u L Baso # (Auto) 0.0 (0.0-0.1) 10^3/u L Nucleated RBC % (a uto) 0 % Nucleated RBCs # 0.0 /100WBC PT 14.60 H (10.5-13.3) SECO NDS INR 1.10 (0.8-1.2) APTT 28.7 (23.9-36.7) SECO NDS Sodium 134 L (136-145) mmol/L Potassium 4.0 (3.5-5.1) mmol/L Chloride 98 (98-107) mmol/L Carbon Dioxide 29 (22-29) mmol/L Anion Gap 11.0 (5-19) BUN 9 (8-23) mg/dL Creatinine 0.7 (0.7-1.2) mg/dL Glucose 121 H (65-115) mg/dL Estimat Average Gl ucose Hemoglobin A1c (4.0-6.0) % Calcium 9.5 (8.5-10.5) mg/dL Total Bilirubin 1.0 (0.15-1.2) mg/dL AST 23 (0-40) U/L ALT 45 H (0-41) U/L Alkaline Phosphata se 43 (40-130) IU/L Total Protein 5.9 L (6.6-8.7) g/dL Albumin 3.8 (3.5-5.2) g/dL Globulin 2.1 (1.3-4.6) g/dL 05/03/19 05/03/19 Range/Units 08:38 08:38 WBC (4.0-10.0) 10^3/ uL RBC (4.1-5.3) 10^6/u L Hgb 11.1 L (11.7-16.6) g/dL Hct (42.0-52.0) % MCV (80-94) fL MCH (28.0-34.0) pg MCHC (30.0-36.0) g/dL RDW (12.1-15.1) % Plt Count (130-400) 10^3/c mm MPV (7.4-10.4) fL Neut % (Auto) % Lymph % (Auto) % [place] % (Auto) % Eos % (Auto) % Baso % (Auto) % Neut # (Auto) (1.8-7.7) 10^3/u L Lymph # (Auto) (0.8-4.8) 10^3/u L [place] # (Auto) (0.2-0.9) 10^3/u L Eos # (Auto) (0.0-0.8) 10^3/u L Baso # (Auto) (0.0-0.1) 10^3/u L Nucleated RBC % (a uto) % Nucleated RBCs # /100WBC PT (10.5-13.3) SECO NDS INR (0.8-1.2) APTT (23.9-36.7) SECO NDS Sodium (136-145) mmol/L Potassium (3.5-5.1) mmol/L Chloride (98-107) mmol/L Carbon Dioxide (22-29) mmol/L Anion Gap (5-19) BUN (8-23) mg/dL Creatinine (0.7-1.2) mg/dL Glucose (65-115) mg/dL Estimat Average Gl ucose 94 Hemoglobin A1c 4.9 (4.0-6.0) % Calcium (8.5-10.5) mg/dL Total Bilirubin (0.15-1.2) mg/dL AST (0-40) U/L ALT (0-41) U/L Alkaline Phosphata se (40-130) IU/L Total Protein (6.6-8.7) g/dL Albumin (3.5-5.2) g/dL Globulin (1.3-4.6) g/dL Discharge Plan Discharge Patient Disposition: Admitted As Inpatient Admit Provider: Susanne Francis Clinical Impression: Intractable nausea and vomiting, Status post laparoscopic cholecystectomy Condition: Stable Interventions: ED Discharge Assessment Last Done: 05/03/19 10:02 Discharge Date/Time: 05/03/19 10:06 Coding Level of Care Code ED Lead Janitor for Chg Fwd Exam Problem Focused
--- NOTE | 2019-05-03 06:53 | XR_ITS ---
WS: [id number] Abdomen series: PA CHEST AND 2 VIEWS OF THE ABDOMEN HISTORY: Nausea and vomiting. COMPARISON: 04/26/2019 Hyperinflated lungs with changes of emphysema. Mild blunting of the RIGHT costophrenic angle. No pneu monia. Heart size is normal. Mild ectasia and atherosclerosis aorta. No free air. There is moderate fluid and air distention of the GI track with no obstructive pattern. Prior cholecystectomy. Osteopenia with degenerative changes in the spine. XR/XR acute abdomen series [id number] IMPRESSION: 1. Distended colon with air and fecal material. Mild ileus or gastroenteritis. No obstruction at this time. 2. Prior cholecystectomy. 3. No pneumonia.
[2019-05-03 07:19] LABS: Basophils % 0.4 %; Eosinophils # 0.3 10^3/uL (0.0-0.8); Eosinophils % 5.8 %; Hematocrit 34.1 % (42.0-52.0); Hemoglobin 11.4 g/dL (11.7-16.6); Lymphocytes # 1.2 10^3/uL (0.8-4.8); Lymphocytes % 23.2 %; Mean Corpuscular HGB Conc 33.4 g/dL (30.0-36.0); Mean Corpuscular Hemoglobin 32.9 pg (28.0-34.0); Mean Corpuscular Volume 98.3 fL (80-94); Monocytes # 0.4 10^3/uL (0.2-0.9); Monocytes % 7.7 %; Neutrophils # 3.3 10^3/uL (1.8-7.7); Neutrophils % 62.7 %; Nucleated Red Blood Cells % 0 %; Platelet Count 283 10^3/cmm (130-400); Red Blood Count 3.47 10^6/uL (4.1-5.3); Red Cell Distribution Width 14.6 % (12.1-15.1); White Blood Count 5.3 10^3/uL (4.0-10.0)
[2019-05-03 07:29] LABS: Partial Thromboplastin Time 28.7 SECONDS (23.9-36.7)
--- NOTE | 2019-05-03 07:32 | CT_ITS ---
WS: [id number] CT ABDOMEN AND PELVIS WITH CONTRAST HISTORY: Generalized abdominal pain with nausea. TECHNIQUE: Imaging performed of the abdomen and pelvis with IV contrast. Single phase imaging of the abdomen. Coronal and sagittal reformats are submitted. All CT scans at [facility] use at least one of these dose optimization techniques: automated exposure control; mA and/or kV adjustment per patient size (includes targeted exams where dose is matched to clinical indication); or iterativ e reconstruction. IV CONTRAST: Omnipaque 300; 95 mL IV. Oral contrast: No DLP: 1388.73 mGy.cm COMPARISON: 04/26/2019 Lower thorax: Mild interstitial thickening at the lung bases with very tiny RIGHT pleural effusion no w present. Heart is moderately enlarged. There is marked distention of the distal esophagus. Esophagu s is distended with fluid with diffuse wall thickening. There is also an adjacent large hiatal hernia . Liver/biliary system: Normal size liver with mild intrahepatic duct dilatation. Duct dilatation is si milar to the prior study. Common bile duct at the pancreatic head is 9.4 mm. Gallbladder: Gallbladder has been surgically removed since the prior examination. No fluid collection s in the gallbladder fossa. Pancreas: Normal. Spleen: Normal. Adrenal glands: Normal. Right kidney: Stable cortical hypodensities. The largest in the upper pole measures 2.2 cm. No obstru ction or solid mass. Left kidney: Cortical cyst measures 3.1 cm in the lower pole. No obstruction or mass. Aorta: Atherosclerosis aorta. No aneurysm. Lymphadenopathy: None. Free fluid: None. GI tract: The appendix is not definitely identified but there is no evidence for appendicitis. Mild d iffuse constipation with no obstructive process. Abdominal wall: Supraumbilical fat-containing hernia with a diameter of 3.7 cm. There is omental fat herniating through the defect. Soft tissue thickening near the umbilicus is new and probably related to the recent cholecystectomy and trocar placement. No abscess. Pelvis: Moderately enlarged prostate gland indents the posterior urinary bladder. Urinary bladder is partially distended. No adenopathy or fluid in the pelvis. Bones: Marked degenerative scoliosis and spondylitic changes in the lower thoracic and entire lumbar spines. CT/CT abdomen pelvis w con* [id number] IMPRESSION: 1. Status post recent cholecystectomy. No complications are evident at the gal lbladder fossa. 2. Large hiatal hernia. 3. Dilated, fluid distended distal esophagus with diffuse wall thickening. May be on the basis of chronic reflux. 4. Fat-containing supraumbilical hernia. 5. Mild intrahepatic bile duct dilatation may be on the basis of the cholecyst ectomy. No obstructing process of the common bile duct. 6. Moderate constipation.
[2019-05-03] MEDS: sodium chloride 0.9% 500 ML IV (07:33)
[2019-05-03 07:37] LABS: Alanine Aminotransferase 45 U/L (0-41); Albumin Level 3.8 g/dL (3.5-5.2); Alkaline Phosphatase 43 IU/L (40-130); Aspartate Amino Transferase 23 U/L (0-40); Blood Urea Nitrogen 9 mg/dL (8-23); Calcium 9.5 mg/dL (8.5-10.5); Carbon Dioxide 29 mmol/L (22-29); Chloride 98 mmol/L (98-107); Creatinine Clr Calc Pharmacy 87.2616; Globulin 2.1 g/dL (1.3-4.6); Glucose 121 mg/dL (65-115); Sodium 134 mmol/L (136-145); Total Protein 5.9 g/dL (6.6-8.7)
[2019-05-03] MEDS: iohexol 300 mg/mL 100 mL Btl IV (08:07)
[2019-05-03] MEDS: pantoprazole 40 mg SDV IVP (08:10)
[2019-05-03 08:43] LABS: Hemoglobin 11.1 g/dL (11.7-16.6)
[2019-05-03] MEDS: D5-NS 0.45% + KCL 20 mEq 20 MEQ/1,000 ML BAG 125 MEQ IV (10:31)
--- NOTE | 2019-05-03 10:45 | P.HP_ITS ---
Providers/Chief Complaint Admitting Physician: Susanne Francis DO Primary Care Provider: Keith Nichols Chief Complaint: GI BLEED History of Present Illness Abhijit Curiel is a 73 year old male that presented to the emergency department today for nausea and vomiting. He stated that starting at 4:00 in the afternoon yesterday he has had several episodes of vomiting. He stated that it continued to therefore he came into the ER for further evaluation and treatment. He stated that his emesis appears to be dark in color and he reports some darker colored bowel movements. He denies any fevers or chills, no sick contacts, denies any abdominal pain. Patient did recently have cholecystectomy and denies any changes to incisions, no drainage or surrounding redness. Patient was recently admitted and discharged on 04/29/2019 he underwent laparoscopic cholecystectomy and EGD due to concern for hematemesis. His hemoglobin had stabilized at that time and he was discharged to home with home health. At time of discharge he was tolerating a clear liquid diet and ambulating without any concerns. Patient was seen and evaluated in the emergency department and due to his intractable nausea and vomiting he was admitted for further evaluation and treatment. His hemoglobin had actually improved since his previous admission and discharge. Review of Systems Const: Denies: fever or chills Eyes: Denies: change in vision ENMT: Denies: nasal congestion Card: Denies: chest pain, palpitations or edema Resp: Denies: shortness of breath, productive cough or coughing up blood GI: Reports: nausea, vomiting and black tarry stool; Denies: abdominal pain, diarrhea, constipation or blood in stool : Denies: painful urination or blood in urine Musc: Denies: extremity pain or muscle cramps Skin/Breast: Denies: rash or new lesion Neuro: Denies: headache or dizziness Psych: Denies: anxiety or depression Endo: Denies: excessive urination or hot flashes [place]/Lymph: Denies: easy bruising or easy bleeding Medications/Allergies Home Medications Medication Instructions Recorded Confirmed Last Taken Type celecoxib [Celebrex] 200 mg PO DAILY 05/03/19 05/03/19 Unknown History losartan 12.5 mg PO Q12H 05/03/19 05/03/19 Unknown History Allergies Allergy/AdvReac Type Severity Reaction Status Date / Time No Known Allergies Allergy Verified 04/26/19 10:17 PFSH Acute PFSH: Statuses (acute, chronic, etc) shown below reflect problem list status as previously entered and may not be historically accurate Medical History (Updated 05/03/19 @ 11:07 by Susanne Francis DO) Esophageal dilatation (Acute) Esophageal stricture (Acute) Fracture of left ankle (Acute) GERD (gastroesophageal reflux disease) (Acute) Surgical History H/O esophagogastroduodenoscopy (Acute) 04/26/2019: Esophagitis S/P laparotomy (Acute) S/P thoracotomy (Acute) for ? esophageal stricture Status post colonoscopy (Acute) Status post laparoscopic cholecystectomy (Acute) Status post left knee replacement (Acute) Family History (Updated 05/03/19 @ 10:59 by Susanne Francis DO) Father Cancer Unknown origin Mother Cancer Reported renal cancer Other Diabetes Social History Smoking and tobacco status: former smoker Alcohol intake: never Vitals/I&O/Wt Last Vital Signs Temp 98.3 F 05/03/19 10:30 Pulse 92 05/03/19 10:30 Resp 16 05/03/19 10:30 BP 104/72 05/03/19 10:30 Pulse Ox 100 05/03/19 10:30 Weight last 48 hrs Weight 90.718 kg Physical Exam Const: COMMON NORMALS: oriented x3 and alert GENERAL APPEARANCE: cooperative ORIENTATION/CONSCIOUSNESS: Yes awake, Yes oriented to person, Yes oriented to place and Yes oriented to time HENMT: COMMON NORMALS: normocephalic and head/scalp atraumatic HEAD & SCALP: normocephalic and atraumatic Eye: COMMON NORMALS: PERRL PUPIL: Yes PERRL Neck/C-Spine: COMMON NORMALS: supple GENERAL: Yes normal visual inspection Resp: COMMON NORMALS: normal respiratory effort and clear to auscultation bilaterally EFFORT & INSPECTION: Yes able to speak in complete sentences AUSCULTATION: clear to auscultation bilaterally, no rhonchi and no wheezes Cardio: COMMON NORMALS: regular rate, regular rhythm and no murmurs RATE: regular rate RHYTHM: regular rhythm GI: COMMON NORMALS: soft to palpation and non-tender INSPECTION: No abdominal distension AUSCULTATION: Yes normoactive bowel sounds PALPATION: Yes soft Extremity: COMMON NORMALS: no clubbing, cyanosis or edema and no calf tenderness Neuro: COMMON NORMALS: oriented x3, CN's II-XII intact bilaterally, moves all extremities and no focal motor deficits SENSORIUM/ORIENTATION: Yes alert, Yes oriented to person, Yes oriented to place and Yes oriented to time SPEECH: speech normal Psych: COMMON NORMALS: mental status grossly normal and cooperative Skin: COMMON NORMALS: no rashes or lesions noted GENERAL SKIN EXAM: no rashes or lesions noted Data : 05/03/19 08:38 05/03/19 07:10 CT Abd/Pel: I personally reviewed and interpreted this imaging study as follows: Radiologist's impression: IMPRESSION: 1. Status post recent cholecystectomy. No complications are evident at the gallbladder fossa. 2. Large hiatal hernia. 3. Dilated, fluid distended distal esophagus with diffuse wall thickening. May be on the basis of chronic reflux. 4. Fat-containing supraumbilical hernia. 5. Mild intrahepatic bile duct dilatation may be on the basis of the cholecystectomy. No obstructing process of the common bile duct. 6. Moderate constipation. Other Xray: I personally reviewed and interpreted this imaging study as follows: Radiologist's impression: IMPRESSION: 1. Distended colon with air and fecal material. Mild ileus or gastroenteritis. No obstruction at this time. 2. Prior cholecystectomy. 3. No pneumonia. A&P Assessment and plan (1) Intractable nausea and vomiting: Believed to be multifactorial, patient does have esophageal GL dilation a nd dysmotility that requires outpatient GI management We will placed on observation with gentle IV fluids and IV antiemetics Patient has no abdominal discomfort and CT scan as noted above show some mo derate constipation, will continue with medical management. Patient also has question of mild ileus, will keep n.p.o. until symptoms improve and then gradually increase diet as tolerated. Discussed with general surgeon, Dr. Hughes. No postoperative concerns at this time, incision appears to be clean and dry with no surrounding erythema and patient denies any abdominal pain. Status: Acute Code(s): R11.2 - Nausea with vomiting, unspecified Additional A&P Information Question of hematemesis: Patient reports what looks like coffee-ground emesis, hemoglobin has significantly improved from just a couple of days ago. We will continue to monitor closely and continue on Carafate and Protonix. Patient had a recent EGD which showed some esophagitis, no active bleeding at that time. Due to significant improvement in hemoglobin we will continue to trend serially but will hold off on further diagnostic studies at this time, however will consider if hemoglobin drops or patient has continued symptoms. Esophageal dilation with esophageal dysmotility: Recommend outpatient gastroenterology follow-up Patient reports being told he had hypertension in the past, however he declines this diagnosis and reports not taking any medications at home Recent laparoscopic cholecystectomy Anemia: Hemoglobin significantly improved from prior admission, will continue to trend serially Hyperglycemia without prior diagnosis of diabetes, will check hemoglobin A1c DVT prophylaxis: SCDs, no pharmacologic prophylaxis due to concern as above Diet: N.p.o., gradually increase as tolerated CODE STATUS: Allow natural , discussed with patient in the ED Attestations Medical Necessity Statement*: Observation due to intractable nausea vomiting with recent cholecystectomy and question of mild ileus, expected stay less than 2 midnights Coding Level of Care Code Acute Die Drawing Checker for Betty Fwd Diagnoses Intractable nausea and vomiting R11.2
[2019-05-03] MEDS: lactated ringers 1,000 ML 75 ML IV ×2 (10:51→22:57)
[2019-05-03] MEDS: sucralfate 1 gm Tablet PO ×2 (11:44→16:58)
[2019-05-03] MEDS: finasteride 5 mg Tablet PO (11:44)
[2019-05-03] MEDS: lactulose oral liq 20 gm/30 mL UDC 15 GM PO ×2 (11:53→16:58)
[2019-05-03 12:23] LABS: Hematocrit 32.1 % (42.0-52.0); Hemoglobin 10.7 g/dL (11.7-16.6)
[2019-05-03 13:02] LABS: Estmated Average Glucose 94; Hemoglobin A1C 4.9 % (4.0-6.0)
[2019-05-03] MEDS: HYDROcodone-acetaminophen 5-325 mg Tablet 1 TAB PO ×2 (13:57→23:01)
[2019-05-03] MEDS: morphine ER (12 HR) 15 mg Tablet PO (16:58)
[2019-05-03] MEDS: docusate sodium 100 mg Capsule PO (16:58)
[2019-05-03] MEDS: pantoprazole DR 40 mg Tablet PO (16:58)
[2019-05-03 18:58] LABS: Hematocrit 30.4 % (42.0-52.0); Hemoglobin 10.3 g/dL (11.7-16.6)
[2019-05-04] VITALS (8 sets, daily range): BP systolic 107–124; BP diastolic 72–83; PULSE 64–84; RESP 18–19; TEMP 36.5–37.1; O2SAT 94–97
[2019-05-04] MEDS: sucralfate 1 gm Tablet PO ×3 (00:43→10:26)
[2019-05-04] MEDS: HYDROcodone-acetaminophen 5-325 mg Tablet 1 TAB PO ×3 (03:04→16:45)
[2019-05-04 04:29] LABS: Basophils % 0.4 %; Eosinophils # 0.5 10^3/uL (0.0-0.8); Eosinophils % 8.6 %; Hematocrit 31.9 % (42.0-52.0); Hemoglobin 10.3 g/dL (11.7-16.6); Lymphocytes # 2.3 10^3/uL (0.8-4.8); Lymphocytes % 43.6 %; Mean Corpuscular HGB Conc 32.3 g/dL (30.0-36.0); Mean Corpuscular Hemoglobin 33.3 pg (28.0-34.0); Mean Corpuscular Volume 103.2 fL (80-94); Mean Platelet Volume 9.2 fL (7.4-10.4); Monocytes # 0.6 10^3/uL (0.2-0.9); Monocytes % 10.9 %; Neutrophils # 1.9 10^3/uL (1.8-7.7); Neutrophils % 36.1 %; Nucleated Red Blood Cells % 0 %; Platelet Count 231 10^3/cmm (130-400); Red Blood Count 3.09 10^6/uL (4.1-5.3); Red Cell Distribution Width 14.4 % (12.1-15.1); White Blood Count 5.2 10^3/uL (4.0-10.0)
[2019-05-04 04:52] LABS: Alanine Aminotransferase 29 U/L (0-41); Albumin Level 2.9 g/dL (3.5-5.2); Alkaline Phosphatase 33 IU/L (40-130); Anion Gap 13.4 (5-19); Aspartate Amino Transferase 18 U/L (0-40); Blood Urea Nitrogen 10 mg/dL (8-23); Calcium 8.9 mg/dL (8.5-10.5); Carbon Dioxide 24 mmol/L (22-29); Chloride 99 mmol/L (98-107); Creatinine Clr Calc Pharmacy 87.2616; Globulin 1.7 g/dL (1.3-4.6); Glucose 90 mg/dL (65-115); Potassium 3.4 mmol/L (3.5-5.1); Sodium 133 mmol/L (136-145); Total Bilirubin 1.2 mg/dL (0.15-1.2); Total Protein 4.6 g/dL (6.6-8.7)
--- NOTE | 2019-05-04 06:00 | XR_ITS ---
WS: [id number] KUB, 05/04/2019 Clinical Data: Intractable nausea and vomiting Comparison: Acute abdomen series, 05/03/2019 Findings: No abnormal intraabdominal masses or calcifications are seen. There is no dilatated small bowel or ev idence of obstruction. There are clips in the right upper quadrant from a cholecystectomy. There is contrast material in the bladder from yesterday's CT scan of the abdomen and pelvis. There is a large amount of fecal materia l throughout the colon. XR/XR KUB portable [id number] Impression: 1. Negative for obstruction. 2. Large amount of fecal material in the colon.
[2019-05-04] MEDS: lactulose oral liq 20 gm/30 mL UDC 15 GM PO (08:32)
[2019-05-04] MEDS: losartan 50 mg Tablet 25 MG PO (08:32)
[2019-05-04] MEDS: pantoprazole DR 40 mg Tablet PO (08:32)
[2019-05-04] MEDS: finasteride 5 mg Tablet PO (08:32)
[2019-05-04] MEDS: docusate sodium 100 mg Capsule PO (08:33)
[2019-05-04] MEDS: morphine ER (12 HR) 15 mg Tablet PO (10:26)
[2019-05-04] MEDS: lactated ringers 1,000 ML 75 ML IV (11:56)
--- NOTE | 2019-05-04 12:41 | PC.CHAP ---
Pastoral Care Encounter/Spiritual Assessment Type of Contact [] Declined billing control clerk visit [] Patient/Family/Request visit [] Outpatient visit [] Follow-up visit [] Physician referral [] Code/Alert [] Routine visit [] Staff referral [] Actively dying [] Patient sleeping [] Family support [] [] Out of room [] Palliative care [] [x] Receiving care in room [] Pre-surgical visit [] Trauma [] Long length of stay [] ICU visit [x] Other: Follow up visit needed as medical staff was busy with patient Relational/Emotional Strength [] Patient feels connected with others/family/visitors/staff [] Distress [] Loneliness/isolation [] Abandonment Spirituality of Patient [] Person of Katelynn [] Attends [employer] of their Katelynn [] Believes in Prayer [] Reads Bible or Alevism materials [] There are Spiritual issues to be addressed Outside Laborer Interventions [] Prayer [] Active listening [] Non-anxious presence [] Spiritual/emotional support [] Crisis/trauma care [] Spiritual counseling [] Bereavement support [] Provided bereavement packet [] Provided Bible/devotional materials [] Provided toy/stuffed animal, coloring book to patient or family member [] Provided Communion [] Anointing/[place] [] Salvation [] Completed spiritual assessment [] Other: Impact on Illness or Injury [] Angry [] Fearful [] Anxious [] Often cries [] Exhaustion [] Unable to work [] Unable to attend holiness [] Unable to walk/stand [] Unable to read [] Unable to drive [] Unable to eat/drink [] Unable to sleep [] Unable to be with family [] Patient intubated [] Other: Summary Follow up needed Medical staff was busy with patient Outside Laborer Cally Downing Time spent with patient 2 minutes
--- NOTE | 2019-05-04 13:44 | PC.NURSE ---
notified dr Covington that pt is wanting to eat and has not had a bm yet since being her. orders to give one time dose of dulcolax [place] in no relief can do enema and to start pt on FL diet.
--- NOTE | 2019-05-04 19:46 | PM.DCS ---
Discharge Providers Date of Admission: 05/03/19 09:25 Date of Discharge: Date of Discharge: May 04, 2019 Attending Provider at Admission: Susanne Francis DO Attending Provider at Discharge: Lebron Covington Primary Care Provider: Keith Nichols Diagnoses at Discharge Discharge Diagnosis (1) Intractable nausea and vomiting: Status: Acute (2) Status post laparoscopic cholecystectomy: Status: Acute (3) Nausea: Status: Acute Reason for Visit Reason for Visit: Reason For Visit: GI BLEED Hospital Course Hospital Course: 73-year-old gentleman with recent admission for cholecystectomy, subsequently with EGD due to concern for hematemesis returned to the hospital due to nausea and vomiting, with concern for possible coffee-ground contents. His symptoms were thought to be multifactorial secondary to esophageal dilation and dysmotility, hiatal hernia, constipation, possibly mild ileus. Due to recent EGD additional invasive evaluation was deferred. His hemoglobin did not show further decline suggestive of bleeding. He was continued on Protonix, Carafate. Repeat KUB showed constipation. He was started on bowel regimen and had a large bowel movement this afternoon. He has tolerated diet, and was discharged home feeling better. He should continue follow-up with surgery as previously as well as regarding large hiatal hernia, as well please facilitate referral to gastroenterology for follow-up on esophageal dilation. He should maintain bowel regimen, avoid constipation contributing to his symptoms. Physical Exam Const: COMMON NORMALS: no apparent distress and oriented x3 OTHER: Sitting up in bed. Comfortable at rest. Family at bedside. HENMT: COMMON NORMALS: oropharynx normal Neck/C-Spine: COMMON NORMALS: no JVD Resp: COMMON NORMALS: normal respiratory effort and clear to auscultation bilaterally AUSCULTATION: clear to auscultation bilaterally Cardio: COMMON NORMALS: no JVD, regular rhythm, S1 normal heart sound, S2 normal heart sound and no murmurs RHYTHM: regular rhythm HEART SOUNDS: S1 normal and S2 normal GI: COMMON NORMALS: normal to inspection, nondistended, normoactive bowel sounds, soft to palpation and non-tender AUSCULTATION: Yes normoactive bowel sounds PALPATION: Yes soft Extremity: COMMON NORMALS: no joint enlargement and no pedal edema Neuro: COMMON NORMALS: oriented x3 and moves all extremities Skin: COMMON NORMALS: no rashes or lesions noted GENERAL SKIN EXAM: no rashes or lesions noted Discharge Data Data Completed and Pending: Completed Studies During Hospitalization Category Date Time Status CT abdomen pelvis w con* [id number] Stat Cat Scan 05/03/19 07:32 Completed XR KUB portable [id number] Routine Exams 05/04/19 06:00 Completed XR acute abdomen series [id number] Stat Exams 05/03/19 06:53 Completed Labs from last 24 hours 05/04/19 05/04/19 03:00 03:00 WBC 5.2 RBC 3.09 L Hgb 10.3 L Hct 31.9 L MCV 103.2 H MCH 33.3 MCHC 32.3 RDW 14.4 Plt Count 231 MPV 9.2 Neut % (Auto) 36.1 Lymph % (Auto) 43.6 [place] % (Auto) 10.9 Eos % (Auto) 8.6 Baso % (Auto) 0.4 Neut # (Auto) 1.9 Lymph # (Auto) 2.3 [place] # (Auto) 0.6 Eos # (Auto) 0.5 Baso # (Auto) 0.0 Nucleated RBC % (a uto) 0 Nucleated RBCs # 0.0 Sodium 133 L Potassium 3.4 L Chloride 99 Carbon Dioxide 24 Anion Gap 13.4 BUN 10 Creatinine 0.7 Glucose 90 Calcium 8.9 Total Bilirubin 1.2 AST 18 ALT 29 Alkaline Phosphata se 33 L Total Protein 4.6 L D Albumin 2.9 L Globulin 1.7 Vitals: Last Vital Signs Temp 98.2 F 05/04/19 16:00 Pulse 80 05/04/19 16:00 Resp 18 05/04/19 16:00 BP 107/73 05/04/19 16:00 Pulse Ox 96 05/04/19 16:00 Discharge Plan Discharge Patient Disposition: Home, Self-Care Condition: Stable Prescriptions: New Miralax 17 gram/dose powder 17 gm PO BID Qty: 238 RF: 0 Continued hydromorphone [Dilaudid] 4 mg tablet 4 mg PO QID PRN (Reason: pain) 30 Days Qty: 120 RF: 0 morphine 15 mg tablet extended release 15 mg PO Q12H PRN (Reason: pain) 30 Days Qty: 60 RF: 0 lansoprazole 15 mg capsule,delayed release(DR/EC) 15 mg PO BID RF: 0 diphenhydramine HCl [Benadryl] 25 mg capsule 25 mg PO TID PRN (Reason: Allergy Symptoms) RF: 0 finasteride 5 mg tablet 5 mg PO DAILY RF: 0 acetaminophen [Tylenol Extra Strength] 500 mg Tablet 1,000 mg PO QID PRN (Reason: Pain) RF: 0 sucralfate [Carafate] 1 gram tablet 1 gm PO Q6H 28 Days Qty: 112 RF: 0 lactulose 10 gram/15 mL solution 15 ml PO BID Qty: 237 RF: 2 losartan 25 mg Tablet 12.5 mg PO Q12H RF: 0 Discontinued docusate sodium [Colace] 100 mg capsule 100 mg PO BID Qty: 30 RF: 0 celecoxib [Celebrex] 200 mg Capsule 200 mg PO DAILY RF: 0 Discharge Orders: Discharge Order (Routine); Ordered 05/04/19 Ordered By: Lebron Covington Referrals: [facility] [Provider Group] - 2 weeks Keith Nichols [Primary Care Provider] - 05/11/19 10:00 am Jonathan Hughes MD [Physician] - 05/15/19 3:30 pm Discharge Diet: Advance as tolerated and GI Soft Discharge Activity: Increase activity as tolerated Patient Instructions: Polyethylene Glycol 3350 (By mouth), Cholelithiasis (DC), Laparoscopic Cholecystectomy (DC), Acute Nausea and Vomiting (DC) Activity Restrictions/Additional Instructions: Discontinue Celebrex or other NSAIDs if possible as they can contribute to stomach inflammation and bleeding from upper GI tract. Please have your primary care provider recheck your hemoglobin level within 1 week. Avoid constipation. Consider adding fiber to your meals on regular basis. Remove Dermabond dressing in 7-10 days. Do not lift more than 10 pounds. Do not operate heavy machinery or drive while using pain medications. Return to ER or contact Dr Hguhes if there are any signs of infection like, increasing pain, fevers, chills, redness or drainage of pus. Discharge Date/Time: 05/04/19 17:34 Discharge Attestations Time Spent in Discharge Care*: greater than 30 min Quality Metrics Clinical Quality Measures During this hospital stay, did patient experience: None Coding Level of Care Code Acute Radio Control Crane Operator for Chg Fwd Exam Problem Focused Diagnoses Intractable nausea and vomiting R11.2 Status post laparoscopic cholecystectomy Z90.49 Nausea R11.0
== END 2019-05-04 17:34 | disposition home or self-care (01) ==
LOC: ER 06:58 → MEDSURG 10:01
PROVIDERS: Admitting Provider Family Medicine; Emergency Provider Family Medicine; Family Provider Internal Medicine; PCP Internal Medicine; Visit Provider Internal Medicine
DX: R11.2 Nausea with vomiting, unspecified (principal); Z90.49 Acquired absence of other specified parts of digestive tract; R11.0 Nausea; K21.9 Gastro-esophageal reflux disease without esophagitis; Z87.891 Personal history of nicotine dependence; Z98.890 Other specified postprocedural states
CPT/HCPCS: 12345; 36415; 74018; 74022; 74177; 80053; 83036; 85014; 85018; 85025; 85610; 85730; 96361; 96365; 96375; 99282; 99285; C9113; G0378; J7040; Q9967

== ENCOUNTER 2019-05-23 08:58 | Outpatient (CLI) | payer OTHER, SELFPAY ==
--- NOTE | 2019-05-23 09:05 | FL_ITS ---
WS: [id number] MODIFIED BARIUM SWALLOW HISTORY: Other dysphagia FLUOROSCOPY TIME: 2.2 minutes. Modified barium swallow was performed by the speech pathologist. Fluoroscopy was provided with the pa tient in a lateral projection. Multiple food consistencies were provided. Patient swallowed all barium mixtures without difficulty. No aspiration or laryngeal penetration was identified. There is significant spillage into the piriform sinuses of the liquid. Patient was also u nable to eat solid foods. Patient is edentulous. Patient swallowed the barium tablet without difficul ty. Large hiatal hernia was noted at the GE junction. This hiatal hernia has been described. FL/FL barium swallow modifd [id number] IMPRESSION: 1. No aspiration or laryngeal penetration. 2. Significant spillage of liquids to the piriform sinuses. 3. Large, known hiatal hernia. Please see speech therapist report also for recommendations.
== END 2019-05-23 08:59 | disposition home or self-care (01) ==
PROVIDERS: Family Provider Internal Medicine; PCP Internal Medicine; Visit Provider Surgery
DX: K44.9 Diaphragmatic hernia without obstruction or gangrene (principal); R13.19 Other dysphagia
CPT/HCPCS: 74230; 92611

== ENCOUNTER → 2019-06-05 13:38 | Outpatient (BNVA) | payer OTHER, SELFPAY | PROVIDERS: Family Provider Internal Medicine; PCP Internal Medicine; Visit Provider Anesthesiology | DX: M54.5 Low back pain (principal) | CPT/HCPCS: 99213 ==

== ENCOUNTER → 2019-11-02 09:27 | Outpatient (BNVA) | payer OTHER, SELFPAY | PROVIDERS: Family Provider Internal Medicine; PCP Family Medicine; Visit Provider Anesthesiology | DX: G89.29 Other chronic pain (principal); M54.42 Lumbago with sciatica, left side; Z79.891 Long term (current) use of opiate analgesic | CPT/HCPCS: 99213; 99214 ==

== ENCOUNTER → 2020-01-01 09:22 | Outpatient (BNVA) | payer OTHER, SELFPAY | PROVIDERS: Family Provider Internal Medicine; PCP Family Medicine; Visit Provider Anesthesiology | DX: G89.29 Other chronic pain (principal); M54.42 Lumbago with sciatica, left side; Z79.891 Long term (current) use of opiate analgesic | CPT/HCPCS: 99213; 99214 ==

== ENCOUNTER → 2020-02-26 09:36 | Outpatient (BNVA) | payer OTHER, SELFPAY | PROVIDERS: Family Provider Internal Medicine; PCP Family Medicine; Visit Provider Anesthesiology | DX: G89.29 Other chronic pain (principal); M54.42 Lumbago with sciatica, left side; Z79.891 Long term (current) use of opiate analgesic | CPT/HCPCS: 99213; 99214 ==

== ENCOUNTER → 2020-04-24 12:49 | Outpatient (BNVA) | payer OTHER, SELFPAY | PROVIDERS: Family Provider Internal Medicine; PCP Family Medicine; Visit Provider Anesthesiology | DX: G89.29 Other chronic pain (principal); M54.42 Lumbago with sciatica, left side; Z79.891 Long term (current) use of opiate analgesic | CPT/HCPCS: 99213 ==

== ENCOUNTER → 2020-07-03 10:41 | Outpatient (BNVA) | payer OTHER, SELFPAY | PROVIDERS: Family Provider Internal Medicine; PCP Family Medicine; Visit Provider Anesthesiology | DX: G89.29 Other chronic pain (principal); M54.42 Lumbago with sciatica, left side; Z79.891 Long term (current) use of opiate analgesic | CPT/HCPCS: 99213 ==

== ENCOUNTER → 2020-08-28 13:08 | Outpatient (BNVA) | payer OTHER, SELFPAY | PROVIDERS: Family Provider Internal Medicine; PCP Family Medicine; Visit Provider Anesthesiology | DX: G89.29 Other chronic pain (principal); M54.42 Lumbago with sciatica, left side; Z79.891 Long term (current) use of opiate analgesic | CPT/HCPCS: 99213 ==

== ENCOUNTER → 2020-10-28 13:36 | Outpatient (BNVA) | payer OTHER, SELFPAY | PROVIDERS: Family Provider Internal Medicine; PCP Family Medicine; Visit Provider Anesthesiology | DX: G89.29 Other chronic pain (principal); M54.42 Lumbago with sciatica, left side; Z87.891 Personal history of nicotine dependence; Z79.891 Long term (current) use of opiate analgesic | CPT/HCPCS: 99213 ==

== ENCOUNTER → 2020-11-21 14:09 | Outpatient (BNVA) | payer OTHER, SELFPAY | PROVIDERS: Family Provider Internal Medicine; PCP Family Medicine; Visit Provider Anesthesiology | DX: G89.29 Other chronic pain (principal); M54.42 Lumbago with sciatica, left side; Z79.891 Long term (current) use of opiate analgesic; Z87.891 Personal history of nicotine dependence | CPT/HCPCS: 99213 ==

== ENCOUNTER → 2021-01-22 13:05 | Outpatient (BNVA) | payer OTHER, SELFPAY | PROVIDERS: Family Provider Internal Medicine; PCP Family Medicine; Visit Provider Anesthesiology | DX: G89.29 Other chronic pain (principal); M54.42 Lumbago with sciatica, left side; Z79.891 Long term (current) use of opiate analgesic; Z77.22 Contact with and (suspected) exposure to environmental tobacco smoke (acute) (chronic); Z87.891 Personal history of nicotine dependence | CPT/HCPCS: 99213 ==

== ENCOUNTER → 2021-03-19 10:49 | Outpatient (BNVA) | payer OTHER, SELFPAY | PROVIDERS: Family Provider Internal Medicine; PCP Family Medicine; Visit Provider Anesthesiology | DX: G89.29 Other chronic pain (principal); M54.42 Lumbago with sciatica, left side; Z79.891 Long term (current) use of opiate analgesic; Z87.891 Personal history of nicotine dependence | CPT/HCPCS: 99213 ==

== ENCOUNTER 2022-12-28 17:08 | Outpatient (CLI) | payer OTHER, SELFPAY ==
[2022-12-28 17:49] LABS: Basophils % 1.3 %; Eosinophils # 0.4 10^3/uL (0.0-0.8); Eosinophils % 11.6 %; Lymphocytes # 1.3 10^3/uL (0.8-4.8); Lymphocytes % 41.9 %; Mean Corpuscular HGB Conc 34.7 g/dL (30-55); Mean Corpuscular Hemoglobin 34.2 pg (27-33); Mean Corpuscular Volume 98.6 fl (82-101); Mean Platelet Volume 10.1 fL (7.4-10.4); Monocytes # 0.2 10^3/uL (0.2-0.9); Neutrophils # 1.12 10^3/uL (1.8-7.7); Neutrophils % 37.2 %; Nucleated Red Blood Cells % 0 %; Platelet Count 132 10^3/cmm (157-399); Red Blood Count 3.45 10^6/uL (3.85-5.65); Red Cell Distribution Width 13.1 % (12.1-15.1); White Blood Count 3.01 10^3/uL (3.29-11.43)
[2022-12-28 17:50] LABS: Erythrocyte Sedimentation Rate < 1 mm/hr (0-10)
[2022-12-28 18:28] LABS: Alanine Aminotransferase 101 U/L (0-41); Albumin Level 3.5 g/dL (3.5-5.2); Alkaline Phosphatase 262 U/L (40-130); Aspartate Amino Transferase 125 U/L (0-40); Blood Urea Nitrogen 10 mg/dL (8-23); Calcium 9.1 mg/dL (8.5-10.5); Carbon Dioxide 29 mmol/L (22-29); Chloride 103 mmol/L (98-107); Globulin 2.3 g/dL (1.3-4.6); Glucose 85 mg/dL (65-115); Osmolality Calculated 284 mOsm/kg (285-295); Sodium 138 mmol/L (136-145); Total Protein 5.8 g/dL (6.6-8.7)
== END 2022-12-28 17:09 | disposition home or self-care (01) ==
LOC: LAB 17:09
PROVIDERS: PCP Family Medicine; Visit Provider Specialist
DX: M00.869 Arthritis due to other bacteria, unspecified knee (principal); B96.89 Other specified bacterial agents as the cause of diseases classified elsewhere
CPT/HCPCS: 80053; 85025; 85651; 86140

== ENCOUNTER 2023-01-03 13:25 | Outpatient (CLI) | payer OTHER, SELFPAY ==
[2023-01-03 14:12] LABS: Alanine Aminotransferase 139 U/L (0-41); Albumin Level 3.2 g/dL (3.5-5.2); Alkaline Phosphatase 328 U/L (40-130); Anion Gap 8.5 (5-19); Aspartate Amino Transferase 187 U/L (0-40); Blood Urea Nitrogen 12 mg/dL (8-23); Calcium 8.8 mg/dL (8.5-10.5); Carbon Dioxide 27 mmol/L (22-29); Chloride 102 mmol/L (98-107); Globulin 2.2 g/dL (1.3-4.6); Glucose 88 mg/dL (65-115); Osmolality Calculated 277 mOsm/kg (285-295); Potassium 3.5 mmol/L (3.5-5.1); Sodium 134 mmol/L (136-145); Total Bilirubin 1.3 mg/dL (0.15-1.2); Total Protein 5.4 g/dL (6.6-8.7)
== END 2023-01-03 13:26 | disposition home or self-care (01) ==
LOC: LAB 13:29
PROVIDERS: PCP Family Medicine; Visit Provider Specialist
DX: T84.54XA Infection and inflammatory reaction due to internal left knee prosthesis, initial encounter (principal); Y79.2 Prosthetic and other implants, materials and accessory orthopedic devices associated with adverse incidents
CPT/HCPCS: 80053; 86140

== ENCOUNTER 2023-01-04 14:15 | Outpatient (CLI) | payer OTHER, SELFPAY ==
[2023-01-04 14:25] LABS: Basophils % 1.1 %; Eosinophils # 0.4 10^3/uL (0.0-0.8); Eosinophils % 14.1 %; Hematocrit 34.3 % (37-53); Lymphocytes # 1.3 10^3/uL (0.8-4.8); Mean Corpuscular HGB Conc 34.1 g/dL (30-55); Mean Corpuscular Hemoglobin 34.5 pg (27-33); Mean Corpuscular Volume 101.2 fl (82-101); Mean Platelet Volume 10.3 fL (7.4-10.4); Monocytes # 0.2 10^3/uL (0.2-0.9); Monocytes % 7.1 %; Neutrophils % 30.7 %; Nucleated Red Blood Cells % 0 %; Platelet Count 94 10^3/cmm (157-399); Red Blood Count 3.39 10^6/uL (3.85-5.65); Red Cell Distribution Width 12.3 % (12.1-15.1); White Blood Count 2.83 10^3/uL (3.29-11.43)
[2023-01-04 14:44] LABS: Erythrocyte Sedimentation Rate < 1 mm/hr (0-10)
[2023-01-04 14:59] LABS: Neutrophils # 0.87 10^3/uL (1.8-7.7)
== END 2023-01-04 14:16 | disposition home or self-care (01) ==
LOC: LAB 14:16
PROVIDERS: PCP Family Medicine; Visit Provider Specialist
DX: T84.54XA Infection and inflammatory reaction due to internal left knee prosthesis, initial encounter (principal); Y79.2 Prosthetic and other implants, materials and accessory orthopedic devices associated with adverse incidents
CPT/HCPCS: 85025; 85651

== ENCOUNTER 2023-01-10 12:59 | Outpatient (CLI) | payer OTHER, SELFPAY ==
[2023-01-10 14:44] LABS: Basophils % 0.7 %; Eosinophils # 0.5 10^3/uL (0.0-0.8); Eosinophils % 11.6 %; Hematocrit 37.4 % (37-53); Lymphocytes # 1.2 10^3/uL (0.8-4.8); Lymphocytes % 27.9 %; Mean Corpuscular Hemoglobin 34.6 pg (27-33); Mean Corpuscular Volume 101.9 fl (82-101); Mean Platelet Volume 10.4 fL (7.4-10.4); Monocytes # 0.3 10^3/uL (0.2-0.9); Monocytes % 6.9 %; Neutrophils # 2.23 10^3/uL (1.8-7.7); Neutrophils % 52.7 %; Nucleated Red Blood Cells % 0 %; Platelet Count 110 10^3/cmm (157-399); Red Blood Count 3.67 10^6/uL (3.85-5.65); Red Cell Distribution Width 11.8 % (12.1-15.1); White Blood Count 4.23 10^3/uL (3.29-11.43)
[2023-01-10 15:14] LABS: Alanine Aminotransferase 78 U/L (0-41); Albumin Level 3.3 g/dL (3.5-5.2); Alkaline Phosphatase 269 U/L (40-130); Aspartate Amino Transferase 79 U/L (0-40); Blood Urea Nitrogen 8 mg/dL (8-23); Calcium 9.2 mg/dL (8.5-10.5); Carbon Dioxide 26 mmol/L (22-29); Chloride 105 mmol/L (98-107); Globulin 2.3 g/dL (1.3-4.6); Glucose 88 mg/dL (65-115); Osmolality Calculated 286 mOsm/kg (285-295); Sodium 139 mmol/L (136-145); Total Bilirubin 1.3 mg/dL (0.15-1.2); Total Protein 5.6 g/dL (6.6-8.7)
== END 2023-01-10 13:00 | disposition home or self-care (01) ==
LOC: LAB 13:01
PROVIDERS: PCP Family Medicine; Visit Provider Specialist
DX: T84.54XA Infection and inflammatory reaction due to internal left knee prosthesis, initial encounter (principal); Y79.2 Prosthetic and other implants, materials and accessory orthopedic devices associated with adverse incidents
CPT/HCPCS: 80053; 85025

== ENCOUNTER 2023-01-14 06:00 | Outpatient (RCR) | payer OTHER, SELFPAY | END 2023-01-25 23:59 | disposition home or self-care (01) | LOC: GPT 06:00 | PROVIDERS: PCP Family Medicine; Visit Provider Student in an Organized Health Care Education/Training Program | DX: M25.362 Other instability, left knee (principal) | CPT/HCPCS: 97110; 97140; 97162 ==

== ENCOUNTER 2023-01-17 14:39 | Outpatient (CLI) | payer OTHER, SELFPAY ==
[2023-01-17 14:52] LABS: Basophils % 0.3 %; Eosinophils # 0.2 10^3/uL (0.0-0.8); Eosinophils % 2.9 %; Hematocrit 37.2 % (37-53); Lymphocytes # 1.8 10^3/uL (0.8-4.8); Lymphocytes % 26.9 %; Mean Corpuscular HGB Conc 34.7 g/dL (30-55); Mean Corpuscular Hemoglobin 33.9 pg (27-33); Mean Corpuscular Volume 97.6 fl (82-101); Monocytes # 0.3 10^3/uL (0.2-0.9); Monocytes % 5.2 %; Neutrophils # 4.25 10^3/uL (1.8-7.7); Neutrophils % 64.4 %; Nucleated Red Blood Cells % 0 %; Platelet Count 120 10^3/cmm (157-399); Red Blood Count 3.81 10^6/uL (3.85-5.65); Red Cell Distribution Width 11.4 % (12.1-15.1); White Blood Count 6.59 10^3/uL (3.29-11.43)
[2023-01-17 14:54] LABS: Erythrocyte Sedimentation Rate < 1 mm/hr (0-10)
[2023-01-17 15:20] LABS: Alanine Aminotransferase 79 U/L (0-41); Albumin Level 3.6 g/dL (3.5-5.2); Alkaline Phosphatase 257 U/L (40-130); Anion Gap 10.8 (5-19); Aspartate Amino Transferase 79 U/L (0-40); Blood Urea Nitrogen 13 mg/dL (8-23); Calcium 9.4 mg/dL (8.5-10.5); Carbon Dioxide 26 mmol/L (22-29); Chloride 103 mmol/L (98-107); Globulin 2.3 g/dL (1.3-4.6); Glucose 91 mg/dL (65-115); Osmolality Calculated 282 mOsm/kg (285-295); Potassium 3.8 mmol/L (3.5-5.1); Sodium 136 mmol/L (136-145); Total Bilirubin 1.8 mg/dL (0.15-1.2); Total Protein 5.9 g/dL (6.6-8.7)
== END 2023-01-17 14:40 | disposition home or self-care (01) ==
PROVIDERS: PCP Family Medicine; Visit Provider Specialist
DX: T84.54XA Infection and inflammatory reaction due to internal left knee prosthesis, initial encounter (principal); Y83.8 Other surgical procedures as the cause of abnormal reaction of the patient, or of later complication, without mention of misadventure at the time of the procedure
CPT/HCPCS: 80053; 85025; 85651; 86140

== ENCOUNTER 2023-01-24 14:49 | Outpatient (CLI) | payer OTHER, SELFPAY ==
[2023-01-24 15:27] LABS: Basophils % 0.6 %; Eosinophils # 0.2 10^3/uL (0.0-0.8); Hematocrit 38.9 % (37-53); Lymphocytes # 1.6 10^3/uL (0.8-4.8); Lymphocytes % 43.9 %; Mean Corpuscular HGB Conc 34.2 g/dL (30-55); Mean Corpuscular Hemoglobin 34.3 pg (27-33); Mean Corpuscular Volume 100.3 fl (82-101); Mean Platelet Volume 10.7 fL (7.4-10.4); Monocytes # 0.3 10^3/uL (0.2-0.9); Monocytes % 8.6 %; Neutrophils # 1.52 10^3/uL (1.8-7.7); Neutrophils % 41.9 %; Nucleated Red Blood Cells % 0 %; Platelet Count 117 10^3/cmm (157-399); Red Blood Count 3.88 10^6/uL (3.85-5.65); Red Cell Distribution Width 11.8 % (12.1-15.1); White Blood Count 3.62 10^3/uL (3.29-11.43)
[2023-01-24 15:48] LABS: Alanine Aminotransferase 79 U/L (0-41); Albumin Level 3.9 g/dL (3.5-5.2); Alkaline Phosphatase 265 U/L (40-130); Anion Gap 11.7 (5-19); Aspartate Amino Transferase 72 U/L (0-40); Blood Urea Nitrogen 8 mg/dL (8-23); Calcium 9.4 mg/dL (8.5-10.5); Carbon Dioxide 26 mmol/L (22-29); Chloride 102 mmol/L (98-107); Globulin 2.3 g/dL (1.3-4.6); Glucose 97 mg/dL (65-115); Osmolality Calculated 278 mOsm/kg (285-295); Potassium 4.7 mmol/L (3.5-5.1); Sodium 135 mmol/L (136-145); Total Bilirubin 0.6 mg/dL (0.15-1.2); Total Protein 6.2 g/dL (6.6-8.7)
== END 2023-01-24 14:50 | disposition home or self-care (01) ==
PROVIDERS: PCP Family Medicine; Visit Provider Family Medicine
DX: T84.54XA Infection and inflammatory reaction due to internal left knee prosthesis, initial encounter (principal); Y79.2 Prosthetic and other implants, materials and accessory orthopedic devices associated with adverse incidents
CPT/HCPCS: 80053; 85025

== ENCOUNTER 2023-01-26 06:00 | Outpatient (RCR) | payer OTHER, SELFPAY | END 2023-02-24 23:59 | disposition home or self-care (01) | LOC: GPT 06:00 | PROVIDERS: PCP Family Medicine; Visit Provider Student in an Organized Health Care Education/Training Program | DX: M25.362 Other instability, left knee (principal) | CPT/HCPCS: 97110; 97140 ==

== ENCOUNTER 2023-03-18 07:58 | Outpatient (RCR) | payer OTHER, SELFPAY | END 2023-03-27 23:59 | disposition home or self-care (01) | LOC: GPT 07:58 | PROVIDERS: PCP Family Medicine; Visit Provider Student in an Organized Health Care Education/Training Program | DX: M23.52 Chronic instability of knee, left knee (principal) | CPT/HCPCS: 97110; 97112; 97140 ==

== ENCOUNTER → 2024-10-11 13:50 | Outpatient (BNVA) | payer OTHER, SELFPAY | PROVIDERS: PCP Family Medicine; Visit Provider Podiatrist Foot & Ankle Surgery | DX: R60.9 Edema, unspecified (principal); E11.40 Type 2 diabetes mellitus with diabetic neuropathy, unspecified; M84.377A Stress fracture, right toe(s), initial encounter for fracture | CPT/HCPCS: 73630; 99204 ==